=== PATIENT | female | born 1945 | race Hispanic/Latino ===

== ENCOUNTER 2018-01-28 16:11 | Emergency (ER) | payer MEDICARE ==
[~2018-01-28] VITALS: Ht 157.5 cm; Wt 77.1 kg
[~2018-01-28 16:11] MED LIST: GLIPIZIDE-METF1 EAC2 PO; TYLENOL WITH C1 EACH PO
--- OUTSIDE RECORDS SUMMARY | 2018-01-28 16:13 | XMS REPORT | Clinical Summary ---
Author Author ALVARO [facility] Address Unknown Phone Unavailable Care Team Providers Care Green Prize Packer Name Role Phone PCP Unavailable Allergies No Known Allergies Current Medications Prescription Sig. Disp. Refills Start End Date Status Date metFORMIN (GLUCOPHAGE) Take 500 mg by mouth 2 Active 500 MG tabletIndications: (two) times daily with type 2 diabetes mellitus breakfast and dinner. amLODIPine (NORVASC) 5 MG Take 1 tablet (5 mg 30 tablet 2 07/31/20 07/31/20 Active tablet total) by mouth daily. 17 18 aspirin 81 MG EC tablet Take 1 tablet (81 mg 30 tablet 2 07/31/20 Active total) by mouth daily. 17 18 atorvastatin (LIPITOR) 40 Take 1 tablet (40 mg 30 tablet 2 07/30/20 07/30/20 Active MG tablet total) by mouth nightly. 17 18 famotidine (PEPCID) 20 MG Take 1 tablet (20 mg 60 tablet 0 07/30/20 Active tablet total) by mouth every 12 17 (twelve) hours. lisinopril Take 1 tablet (20 mg 30 tablet 2 07/31/20 07/31/20 Active (PRINIVIL,ZESTRIL) 20 MG total) by mouth daily. 17 18 tablet metoprolol (LOPRESSOR) 50 Take 1 tablet (50 mg 60 tablet 2 07/30/20 07/30/20 Active MG tablet total) by mouth 2 (two) 17 18 times daily. Active Problems Problem Noted Date NSTEMI (non-ST elevated myocardial infarction) ([facility]) 07/28/2017 Hyperlipidemia 07/28/2017 DM type 2 (diabetes mellitus, type 2) ([facility]) 07/28/2017 Leukocytosis (leucocytosis) 07/28/2017 Post-op pain 07/28/2017 Encounters Date Type Specialty Care Team Description 07/29/2017 Procedure Pass 07/29/2017 Surgery [place] Pena, Richard CATH & PCI 07/28/2017 [facility] Cardiology Harriet, Lamont Kwon MD Hyperlipidemia, - Encounter Christal May, unspecified 07/30/2017 hyperlipidemia type;Type 2 diabetes mellitus with complication, unspecified senior care insulin use status ([facility]);NSTEMI (non-ST elevated myocardial infarction) ([facility]) 07/28/2017 Orders Only General Internal Medicine after 01/27/2017 Family History Medical History Relation Name Comments Diabetes Brother No Known Problem Father No Known Problem Mother Relation Name Status Comments Brother Father Mother Social History Tobacco Use Types Packs/Day Years Used Date Never Smoker Smokeless Tobacco: Never Used Alcohol Use Drinks/Week oz/Week Comments No Sex Assigned at Date Recorded Not on file Last Filed Vital Signs Vital Sign Reading Time Taken Blood Pressure 192/75 07/30/2017 11:25 AM [facility] Pulse 64 07/30/2017 11:22 AM [facility] [employer] Temperature 36.9 C (98.4 F) 07/30/2017 11:22 AM [facility] [employer] Respiratory Rate 18 07/30/2017 11:22 AM [facility] Oxygen Saturation 73% 07/30/2017 11:22 AM [facility] [employer] Inhaled Oxygen - - Concentration Weight 78.3 kg (172 lb 11.2 oz) 07/30/2017 7:32 AM [facility] Height 157.5 cm (5' 2") 07/28/2017 5:30 AM [facility] Body Mass Index 31.59 07/30/2017 7:32 AM [facility] Plan of Treatment Not on file Procedures Procedure Name Priority Date/Time Associated Diagnosis Comments L CATH & PCI 07/29/2017 chest pain 11:12 AM SINGLE [employer]NER C[employer]TER after 01/27/2017 Results * VASCULAR DIAGRAM -SCAN (08/01/2017 12:12 PM) Only the most recent of 2 results within the time period is included. * CARDIAC CATH REPORT - SCAN (07/31/2017 11:31 PM) * RHYTHM STRIP - SCAN (07/31/2017 1:20 PM) * POC-Glucose meter (07/30/2017 12:40 PM) Only the most recent of 9 results within the time period is included. Component Value Ref Range POC-Glucose Meter 187 (H)Comment: TESTED AT [facility] [address] [place] [address] 70 - 110 mg /dL [facility] [address] Specimen Performing Laboratory Blood [address] [address] * CBC with platelet count + automated diff (07/30/2017 4:10 AM) Only the most recent of 3 results within the time period is included. Component Value Ref Range WBC 10.5 3.5 - 10.5 K/ L RBC 3.37 (L) 3.93 - 5.22 M/ L Hemoglobin 9.3 (L) 11.2 - 15.7 GM/DL Hematocrit 29.8 (L) 34.1 - 44.9 % MCV 88.4 79.4 - 94.8 fL MCH 27.6 25.6 - 32.2 pg MCHC 31.2 (L) 32.2 - 35.5 GM/DL RDW 14.3 11.7 - 14.4 % Platelets 429 150 - 450 K/CU MM MPV 10.4 9.4 - 12.3 fL nRBC 0 0 - 0 /100 WBC % Neutros 73 % % Lymphs 17 % % Monos 8 % % Eos 1 % % Baso 1 % # Neutros 7.64 (H) 1.56 - 6.13 K/ L # Lymphs 1.76 1.18 - 3.74 K/ L # Monos 0.81 (H) 0.24 - 0.36 K/ L # Eos 0.15 0.04 - 0.36 K/ L # Baso 0.06 0.01 - 0.08 K/ L Immature 1 0 - 1 % Granulocytes-Relative Specimen Performing Laboratory Blood - Arm, Left [address] [address] * CBC with platelet count + automated diff (07/30/2017 4:10 AM) Only the most recent of 3 results within the time period is included. Specimen Performing Laboratory Blood Narrative The following orders were created for panel order CBC with platelet count + automated diff. Procedure Abnormality Status --------- - ------ CBC with platelet count ...[[id number]]AbnormalFinal result Please view results for these tests on the individual orders. * Magnesium (07/30/2017 4:10 AM) Only the most recent of 3 results within the time period is included. Component Value Ref Range Magnesium 1.8 1.6 - 2.6 mg/dL Specimen Performing Laboratory Blood - Arm, Left [address] [address] * Basic metabolic panel (07/30/2017 4:10 AM) Only the most recent of 3 results within the time period is included. Component Value Ref Range Sodium 143 136 - 145 meq/L Potassium 3.2 (L) 3.5 - 5.1 meq/L Chloride 110 (H) 98 - 107 meq/L CO2 23 22 - 29 meq/L BUN 12 7 - 21 mg/dL Creatinine 0.71 0.57 - 1.25 mg/dL Glucose 143 (H) 70 - 105 mg/dL Calcium 8.8 8.4 - 10.2 mg/dL EGFR 81Comment: ESTIMATED GFR IS NOT ACCURATE mL/min/1.73 sq m CREATININE CLEARANCE IN PREDICTING GLOMERULAR FILTRATION RATE. ESTIMATED GFR IS NOT APPLICABLE FOR DIALYSIS PATIENTS. Specimen Performing Laboratory Blood - Arm, Left [address] [address] * TRANSFUSION SERVICE REPORT - SCAN (07/29/2017 5:42 PM) * PERIPHERAL VASCULAR REPORT - SCAN (07/29/2017 7:22 AM) * Carotid doppler bilateral (07/28/2017 6:50 PM) Component Value Ref Range Ejection Fraction Specimen Performing Laboratory [facility] Imp[facility] Right Impression 1. There is <50% diameter reduction (approximately 20% by 2-D measurement) in the internal carotid artery with a peak velocity of 96/27 cm/sec and heterogeneous plaque. 2. The external carotid artery is within normal limits. 3. The common carotid artery is within normal limits. 4. The vertebral artery flow is antegrade and normal. 5. The subclavian artery is within normal limits where visualized. Left Impression 1. There is <50% diameter reduction (approximately 24% by 2-D measurement) in the internal carotid artery with a peak velocity of 101/33 cm/sec and heterogeneous plaque. 2. There is >50% stenosis in the external carotid artery with a velocity of 273/51 . 3. There is non-occluding plaque in the common carotid artery. 4. The vertebral artery flow is antegrade and normal. 5. The subclavian artery is within normal limits where visualized. Conclusions Summary Carotid duplex scanning and color flow imaging were performed bilaterally. The examination was technically difficult due to deep breathing, however, the arteries were adequately visualized. The bilateral internal carotid arteries had <50% hemodynamically insignificant stenosis (approximately 20% by 2-D measurement on the right, approximately 24% by 2-D measurement on the left) with heterogeneous plaque. There was >50% hemodynamically significant stenosis in the left external carotid artery. The vertebral artery flow was antegrade and normal bilaterally. The subclavian arteries were patent with normal flow bilaterally where visualized. Signature Velocities are measured in cm/s ; Diameters are measured in cm Carotid Right Measurements + +----+----+-----+ + + + !Location !PSV !EDV !Angle!%Stenosis 2D!%Stenosis Doppler! Tortuosity ! + +----+----+-----+ + + + !Prox CCA !98.5!15.8!60 !! ! ! + +----+----+-----+ + + + !Dist CCA !94.4!14.7!60 !! ! ! + +----+----+-----+ + + + !Prox ICA !95.9!26.7!60 !20% !<50% ! ! + +----+----+-----+ + + + !Dist ICA !128 !30.6!60 !! ! ! + +----+----+-----+ + + + !Prox ECA !150 !18.1!60 !! ! ! + +----+----+-----+ + + + !Vertebral!95.1!29.9!60 !! ! ! + +----+----+-----+ + + + !Prox Subclavian!159 !!60 !! ! ! + +----+----+-----+ + + + - There is antegrade vertebral flow noted on the right side. - Additional Measurements:ICAPSV/CCAPSV 1.36.ICAEDV/CCAEDV 1.94. Carotid Left Measurements + +----+----+-----+ + + + !Location !PSV !EDV !Angle!%Stenosis 2D!%Stenosis Doppler! Tortuosity ! + +----+----+-----+ + + + !Prox CCA !89.1!15.8!60 !! ! ! + +----+----+-----+ + + + !Dist CCA !80.3!16.4!60 !! ! ! + +----+----+-----+ + + + !Prox ICA !101 !33!60 !24% !<50% ! ! + +----+----+-----+ + + + !Dist ICA !110 !29.9!60 !! ! ! + +----+----+-----+ + + + !Prox ECA !273 !51.9!60 !!>50% ! ! + +----+----+-----+ + + + !Vertebral!51.1!17.3!60 !! ! ! + +----+----+-----+ + + + !Prox Subclavian!155 !!60 !! ! ! + +----+----+-----+ + + + - There is antegrade vertebral flow noted on the left side. - Additional Measurements:ICAPSV/CCAPSV 1.37.ICAEDV/CCAEDV 2.09. Narrative [facility] - Carotid Duplex Study Demographics Patient Name LACIE MIJARESDate of Study 07/28/2017 ISHAN [id number] Age 72 Visit Number [id number] Gender Female Accession Number [id number] [facility] 1945 [id number] Physician SonographChandra YuanJ. Gabrielle Reyna MD, [facility] Procedure Type of Study: Cerebral: Carotid, CAROTID DOPPLER, BILATERAL. Indications for Study:Bruit and Pre-op. Patient Status:TODAY. Study Location:Portable. Technical Quality:Technically Difficult. Risk Factors History of Disease + + + + !Diagnosis !Date!Comments ! + + + + !History/Risk!07/28/2017!NSTEMI, HLD, DM, HTN, Recent surgery: S/P Lap ! !Factors:!!cholycystectomy 07/26/17 ! + + + + Procedure Note Interface, External Ris In - 07/29/2017 4:43 AM [facility]INGLE [facility]NER [facility] - Carotid Duplex Study Demographics Patient Name LACIE MIJARES Date of Study 07/28/2017 ISHAN Age 72 Visit Number [id number] Gender Female Accession Number [id number] Date of 1945 Referring Karsten Blackmon Room Number 7519 Physician Mine Exploration Engineer Arturo Rowland Interpreting SHARMIN Gatica Physician , [facility] Procedure Type of Study: Cerebral: Carotid, CAROTID DOPPLER, BILATERAL. Indications for Study:Bruit and Pre-op. Patient Status:TODAY. Study Location:Portable. Technical Quality:Technically Difficult. Risk Factors History of Disease + + + + !Diagnosis !Date !Comments ! + + + + !History/Risk !07/28/2017!NSTEMI, HLD, DM, HTN, Recent surgery: S/P Lap ! !Factors: ! !cholycystectomy 07/26/17 ! + + + + Impressions Right Impression 1. There is <50% diameter reduction (approximately 20% by 2-D measurement) in the internal carotid artery with a peak velocity of 96/27 cm/sec and heterogeneous plaque. 2. The external carotid artery is within normal limits. 3. The common carotid artery is within normal limits. 4. The vertebral artery flow is antegrade and normal. 5. The subclavian artery is within normal limits where visualized. Left Impression 1. There is <50% diameter reduction (approximately 24% by 2-D measurement) in the internal carotid artery with a peak velocity of 101/33 cm/sec and heterogeneous plaque. 2. There is >50% stenosis in the external carotid artery with a velocity of 273/51 . 3. There is non-occluding plaque in the common carotid artery. 4. The vertebral artery flow is antegrade and normal. 5. The subclavian artery is within normal limits where visualized. Conclusions Summary Carotid duplex scanning and color flow imaging were performed bilaterally. The examination was technically difficult due to deep breathing, however, the arteries were adequately visualized. The bilateral internal carotid arteries had <50% hemodynamically insignificant stenosis (approximately 20% by 2-D measurement on the right, approximately 24% by 2-D measurement on the left) with heterogeneous plaque. There was >50% hemodynamically significant stenosis in the left external carotid artery. The vertebral artery flow was antegrade and normal bilaterally. The subclavian arteries were patent with normal flow bilaterally where visualized. Signature Velocities are measured in cm/s ; Diameters are measured in cm Carotid Right Measurements + +----+----+-----+ + + + !Location !PSV !EDV !Angle!%Stenosis 2D!%Stenosis Doppler!Tortuosity ! + +----+----+-----+ + + + !Prox CCA !98.5!15.8!60 ! ! ! ! + +----+----+-----+ + + + !Dist CCA !94.4!14.7!60 ! ! ! ! + +----+----+-----+ + + + !Prox ICA !95.9!26.7!60 !20% !<50% ! ! + +----+----+-----+ + + + !Dist ICA !128 !30.6!60 ! ! ! ! + +----+----+-----+ + + + !Prox ECA !150 !18.1!60 ! ! ! ! + +----+----+-----+ + + + !Vertebral !95.1!29.9!60 ! ! ! ! + +----+----+-----+ + + + !Prox Subclavian!159 ! !60 ! ! ! ! + +----+----+-----+ + + + - There is antegrade vertebral flow noted on the right side. - Additional Measurements:ICAPSV/CCAPSV 1.36.ICAEDV/CCAEDV 1.94. Carotid Left Measurements + +----+----+-----+ + + + !Location !PSV !EDV !Angle!%Stenosis 2D!%Stenosis Doppler!Tortuosity ! + +----+----+-----+ + + + !Prox CCA !89.1!15.8!60 ! ! ! ! + +----+----+-----+ + + + !Dist CCA !80.3!16.4!60 ! ! ! ! + +----+----+-----+ + + + !Prox ICA !101 !33 !60 !24% !<50% ! ! + +----+----+-----+ + + + !Dist ICA !110 !29.9!60 ! ! ! ! + +----+----+-----+ + + + !Prox ECA !273 !51.9!60 ! !>50% ! ! + +----+----+-----+ + + + !Vertebral !51.1!17.3!60 ! ! ! ! + +----+----+-----+ + + + !Prox Subclavian!155 ! !60 ! ! ! ! + +----+----+-----+ + + + - There is antegrade vertebral flow noted on the left side. - Additional Measurements:ICAPSV/CCAPSV 1.37.ICAEDV/CCAEDV 2.09. * Prepare Leuko-Red RBC (07/28/2017 3:15 PM) Component Value Ref Range CROSSMATCH COMPATIBLE Unit ABO O Pos UNIT NUMBER [id number] Status READY Blood Bank Product RED BLOOD CELLS PRODUCT CODE [id number] CROSSMATCH COMPATIBLE Unit ABO O Pos UNIT NUMBER [id number] Status READY Blood Bank Product RED BLOOD CELLS PRODUCT CODE [id number] Specimen Performing Laboratory Other [place] * Type and screen, automated (07/28/2017 2:18 PM) Component Value Ref Range ABO/RH AUTOMATED (BEAKER) O POSITIVE Ab Scrn NEGATIVE Specimen Performing Laboratory Blood - Line, [place] [address] * Hemoglobin and hematocrit (07/28/2017 2:18 PM) Component Value Ref Range Hemoglobin 9.2 (L) 11.2 - 15.7 GM/DL Hematocrit 29.3 (L) 34.1 - 44.9 % Specimen Performing Laboratory Blood - Line, [address] [address] Narrative Post transfusion * Troponin I (07/28/2017 2:18 PM) Only the most recent of 3 results within the time period is included. Component Value Ref Range Troponin I 3.11 (HH) 0.00 - 0.03 ng/mL Specimen Performing Laboratory Blood - Line, [address] [address] Narrative Troponin I (TnI) levels must be interpreted in the context of the presenting symptoms and the clinical findings. Elevated TnI levels indicate myocardial damage, but are not specific for ischemic heart disease. Elevated TnI levels are seen in patients with other cardiac conditions (including myocarditis and congestive heart failure), and slight TnI elevations occur in patients with other conditions, including sepsis, renal failure, acidosis, acute neurological disease, and persistent tachyarrhythmia. * Potassium (07/28/2017 2:18 PM) Component Value Ref Range Potassium 3.6 3.5 - 5.1 meq/L Specimen Performing Laboratory Blood - Line, Venous [address] [address] Narrative Add on * ECHOCARDIOGRAM REPORT - SCAN (07/28/2017 12:51 PM) * Blood culture (07/28/2017 10:15 AM) Only the most recent of 2 results within the time period is included. Component Value Ref Range Result No growth in 5 days Specimen Performing Laboratory Blood - Arm, Left [address] [address] * XR chest 1 view portable / bedside (07/28/2017 10:09 AM) Specimen Performing Laboratory GE RIS Narrative FINAL REPORT Abdomen one view Comparison: None. Reason for exam:chest pain, SOB Findings: Bowel gas pattern is nonobstructive, nonspecific. No free air is identified. There is contrast within the bladder. Cholecystectomy clips are present. Osseous structures demonstrate degenerative changes. Chest one view. Clinical history: chest pain, SOB Comparison: No priors Discussion: A frontal chest is provided. Cardiomediastinal contours are unremarkable. Aorta is mildly calcified. There are streaky opacities at both lung bases, favor atelectasis. Suspect a small right effusion. No pneumothorax. No acute bony abnormality. Signed: Francisco Tyler MD Report Verified Date/Time:07/28/2017 10:12:53 Reading Location: [facility] Radiology Reading Room Procedure Note Interface, External Ris In - 07/28/2017 10:15 AM SING[facility] [employer]TER FINAL REPORT Abdomen one view Comparison: None. Reason for exam: chest pain, SOB Findings: Bowel gas pattern is nonobstructive, nonspecific. No free air is identified. There is contrast within the bladder. Cholecystectomy clips are present. Osseous structures demonstrate degenerative changes. Chest one view. Clinical history: chest pain, SOB Comparison: No priors Discussion: A frontal chest is provided. Cardiomediastinal contours are unremarkable. Aorta is mildly calcified. There are streaky opacities at both lung bases, favor atelectasis. Suspect a small right effusion. No pneumothorax. No acute bony abnormality. Signed: Francisco Tyler MD Report Verified Date/Time: 07/28/2017 10:12:53 Reading Location: [facility] Radiology Reading Room * XR abdomen / KUB 1 view (07/28/2017 10:09 AM) Specimen Performing Laboratory GE RIS Narrative FINAL REPORT Abdomen one view Comparison: None. Reason for exam:chest pain, SOB Findings: Bowel gas pattern is nonobstructive, nonspecific. No free air is identified. There is contrast within the bladder. Cholecystectomy clips are present. Osseous structures demonstrate degenerative changes. Chest one view. Clinical history: chest pain, SOB Comparison: No priors Discussion: A frontal chest is provided. Cardiomediastinal contours are unremarkable. Aorta is mildly calcified. There are streaky opacities at both lung bases, favor atelectasis. Suspect a small right effusion. No pneumothorax. No acute bony abnormality. Signed: Francisco Tyler MD Report Verified Date/Time:07/28/2017 10:12:53 Reading Location: [facility] Radiology Reading Room Procedure Note Interface, External Ris In - 07/28/2017 10:15 AM S[employer] C[employer]TER FINAL REPORT Abdomen one view Comparison: None. Reason for exam: chest pain, SOB Findings: Bowel gas pattern is nonobstructive, nonspecific. No free air is identified. There is contrast within the bladder. Cholecystectomy clips are present. Osseous structures demonstrate degenerative changes. Chest one view. Clinical history: chest pain, SOB Comparison: No priors Discussion: A frontal chest is provided. Cardiomediastinal contours are unremarkable. Aorta is mildly calcified. There are streaky opacities at both lung bases, favor atelectasis. Suspect a small right effusion. No pneumothorax. No acute bony abnormality. Signed: Francisco Tyler MD Report Verified Date/Time: 07/28/2017 10:12:53 Reading Location: [facility] Radiology Reading Room * Urinalysis w/Microscopic (07/28/2017 9:43 AM) Component Value Ref Range Color, UA Yellow Clarity, UA Clear Specific Thayer, UA 1.028 1.001 - 1.035 pH, UA 5.5 5.0 - 8.0 Protein, UA 50 mg/dL (A) Negative Glucose, UA Negative Negative Ketones, UA 20 mg/dL (A) Negative Bilirubin, UA Negative Negative Blood, UA Small (A) Negative Nitrite, UA Negative Negative Leukocytes, UA Trace (A) Negative Urobilinogen, UA 0.2 0.2 - 1.0 mg/dL RBC, UA 2 /HPF WBC, UA 8 /HPF Mucus Rare Squam Epithel, UA 1 /HPF Specimen Source Urine, Voided Specimen Performing Laboratory Urine - Urine, [place] [address] * Hemoglobin A1c (07/28/2017 9:34 AM) Component Value Ref Range Hemoglobin A1C 5.8 4.3 - 6.1 % Specimen Performing Laboratory Blood - Line, [place] [address] * ECG 12 lead (07/28/2017 8:46 AM) Specimen Performing Laboratory GE MUSE Narrative Ventricular Rate 73 BPM Atrial Rate 73 BPM P-R Interval 130 ms QRS Duration 86 ms Q-T Interval 392 ms QTC Calculation(Bazett) 431 ms P [place] 54 degrees R [place] 43 degrees T [place] -58 degrees Normal sinus rhythm Nonspecific ST and T wave abnormality Abnormal ECG No previous ECGs available Confirmed by MD ENCISO YOCHAI ([id number]) on 07/28/2017 7:59:29 PM Procedure Note Interface, External Ris In - 07/28/2017 7:59 PM SINGLE [employer]NER C[employer]TER Ventricular Rate 73 BPM Atrial Rate 73 BPM P-R Interval 130 ms QRS Duration 86 ms Q-T Interval 392 ms QTC Calculation(Bazett) 431 ms P [place] 54 degrees R [place] 43 degrees T [place] -58 degrees Normal sinus rhythm Nonspecific ST and T wave abnormality Abnormal ECG No previous ECGs available Confirmed by MD ENCISO YOCHAI ([id number]) on 07/28/2017 7:59:29 PM * 2D Echo W/Doppler(CW/PW/Color) (07/28/2017 7:16 AM) Component Value Ref Range Ejection Fraction Specimen Performing Laboratory SLE ECHO HEARTLAB MKCKESSON CPACS Narrative Transthoracic Echocardiography Report (TTE) Demographics Patient NameCASILLAS, LACIE Date of Study11/ ISHAN Female Visit [id number] Unknown Room [id number] Number Date of 4Referring Physician SHARATH Jeffries Age 72 year(s)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 Clinical History NSTEMI Hypertension Contrast Medium: Definity. Amount - 5 ml Height: 62 inches Weight: 78.93 kg (174 lbs) BSA: 1.8 m^2 BMI: 31.82 kg/m^2 HR: 82 bpm BP: 164/75 mmHg Summary LV endocardium is well visualized with IV ultrasound enhancing agent. The left ventricle is chamber size (by vol index) is normal (female - LVED vol - 29-61ml/m2). No evidence of LV hypertrophy. The following segment(s) appear mildly hypokinetic: base and mid inferior, base and mid inferior septum.The other segments contract normally. LVEF by Houston's method of disk assessment is normal (>60%) . Degree of diastolic dysfunction (LAP assessment) is inconclusive due to mitral annular calcification . The right ventricular chamber size and systolic function are within normal limits. Trace mitral regurgitation. Estimated peak systolic PA pressure is 40-45 mmHg + RA pressure. The estimated RA pressure by IVC dynamics 5-10mmHg . No pericardial effusion is visualized. Previous Study No prior exam available for comparison. Signature Findings Technical Quality: Technically fair exam. Rhythm/BPRapid rhythm during the exam. Left Ventricle LV endocardium is well visualized with IV ultrasound enhancing agent. The left ventricle is chamber size (by vol index) is normal (female - LVED vol - 29-61ml/m2). No evidence of LV hypertrophy. The following segment(s) appear mildly hypokinetic: base and mid inferior, base and mid inferior septum. The other segments contract normally. LVEF by Houston's method of disk assessment is normal (>60%) . Degree of diastolic dysfunction (LAP assessment) is inconclusive due to mitral annular calcification . Left AtriumLA size is moderately enlarged (42-48 ml/m2 ) . Right VentricleThe right ventricular chamber size and systolic function are within normal limits. Right Atrium RA size is normal. Atrial SeptumNormal interatrial septum by available views. Aortic Valve Mild AoV cusp thickening. Mild AoV cusp calcification. AoV calcification primarily involves the right- and left- coronary cusp(s). There is evidence of aortic valve sclerosis without significant stenosis. Mitral Valve Mild MV leaflet thickening. Mild mitral annular calcification. Mild MV leaflet calcification. Trace mitral regurgitation. Mild mitral stenosis. Tricuspid ValveTV structure is normal. Mild tricuspid regurgitation. Estimated peak systolic PA pressure is 40-45 mmHg + RA pressure. Pulmonic Valve Normal PV structure. A trace of pulmonary regurgitation. Mean pulmonary pressure 18 mmHg. AortaAortic root size (SInus of Valsalva diameter) is normal . There is diffuse aortic atheroma in following locations: aortic arch PericardiumNo pericardial effusion is visualized. IVC/SVC/PA/PV/PleuralThe estimated RA pressure by IVC dynamics 5-10mmHg . Chambers/Structures Left Atrium LA Dimension: 3.91 cmLA Area: 14.62 cm^2 LA Volume: 48.34 ml LA Vol. Index: 27 ml/m^2 Left Ventricle LVIDd: 4.22 cm LV Septum Diastolic: 1.04 cm LV PW Diastolic: 1.06 cm LVEDV Houston's:87.02 ml LVESV [place]'s:25.22 ml LV IVRT: 82.2 msec LVEF Houston's: 71 % LVEDVI: 48 ml/ m^2 LVESVI: 14 ml/m^2 LVOT Diameter: 2.04 cm Right Atrium RA Vol. (Sngl Plane): 12.74 ml Right Ventricle TAPSE: 1.95 cm Doppler/Quantitative Measurements Mitral Valve MV Peak E-Wave: 1.05 m/sMV Peak A-Wave: 1.3 m/s P1/2t: 76.8 msecE/A Ratio: 0.8 Mean Velocity: 0.92 m/s Peak Gradient: 4.38 mmHg Mean Gradient: 3.75 mmHgDeceleration Time: 135.8 msec MV Area (PHT): 2.86 cm^2Area (continuity): 2.23 cm^ 2 MV VTI: 34.56 cm MV Compa. Peak: Tissue Doppler E' Lateral Velocity: 0.1 m/sE/E': 10.99 Aortic Valve Peak Velocity: 2.3 m/s Mean Velocity: 1.52 m/s Peak Gradient: 21.1 mmHg Mean Gradient: 10.59 mmHg AV Area (continuity): 1.67 cm^2 AV VTI: 46.07 cm AV DVI: 0.51 LVOT Peak Velocity: 1.04 m/s Peak Gradient: 4.34 mmHg Mean Velocity: 0.76 m/s Mean Gradient: 2.58 mmHg LVOT Diameter: 2.04 cmLVOT VTI: 23.56 cm LVOT Area: 3.27 cm^2LVOT SV:76.97 ml LVOT CO: 6.31 l/min LVOT CI: 3.51 l/min/m^2 Tricuspid Valve TR Velocity: 3.18 m/s TR Gradient: 40.38 mmHg Pulmonic Valve PI Peak Velocity: 2.54 m/s Procedure Note Interface, External Ris In - 07/28/2017 12:02 PM [employer] Transthoracic Echocardiography Report (TTE) Demographics Patient Name LACIE MIJARES Date of Study 07/28/2017 ISHAN Gender Female Visit Number [id number] Race Unknown Room Number 7519 Number Date of 1945 Referring Physician SHARATH Jeffries Age 72 year(s) 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 Clinical History NSTEMI Hypertension Contrast Medium: Definity. Amount - 5 ml Height: 62 inches Weight: 78.93 kg (174 lbs) BSA: 1.8 m^2 BMI: 31.82 kg/m^2 HR: 82 bpm BP: 164/75 mmHg Summary LV endocardium is well visualized with IV ultrasound enhancing agent. The left ventricle is chamber size (by vol index) is normal (female - LVED vol - 29-61ml/m2). No evidence of LV hypertrophy. The following segment(s) appear mildly hypokinetic: base and mid inferior, base and mid inferior septum.The other segments contract normally. LVEF by Houston's method of disk assessment is normal (>60%) . Degree of diastolic dysfunction (LAP assessment) is inconclusive due to mitral annular calcification . The right ventricular chamber size and systolic function are within normal limits. Trace mitral regurgitation. Estimated peak systolic PA pressure is 40-45 mmHg + RA pressure. The estimated RA pressure by IVC dynamics 5-10mmHg . No pericardial effusion is visualized. Previous Study No prior exam available for comparison. Signature Findings Technical Quality: Technically fair exam. Rhythm/BP Rapid rhythm during the exam. Left Ventricle LV endocardium is well visualized with IV ultrasound enhancing agent. The left ventricle is chamber size (by vol index) is normal (female - LVED vol - 29-61ml/m2). No evidence of LV hypertrophy. The following segment(s) appear mildly hypokinetic: base and mid inferior, base and mid inferior septum. The other segments contract normally. LVEF by Houston's method of disk assessment is normal (>60%) . Degree of diastolic dysfunction (LAP assessment) is inconclusive due to mitral annular calcification . Left Atrium LA size is moderately enlarged (42-48 ml/m2) . Right Ventricle The right ventricular chamber size and systolic function are within normal limits. Right Atrium RA size is normal. Atrial Septum Normal interatrial septum by available views. Aortic Valve Mild AoV cusp thickening. Mild AoV cusp calcification. AoV calcification primarily involves the right- and left- coronary cusp(s). There is evidence of aortic valve sclerosis without significant stenosis. Mitral Valve Mild MV leaflet thickening. Mild mitral annular calcification. Mild MV leaflet calcification. Trace mitral regurgitation. Mild mitral stenosis. Tricuspid Valve TV structure is normal. Mild tricuspid regurgitation. Estimated peak systolic PA pressure is 40-45 mmHg + RA pressure. Pulmonic Valve Normal PV structure. A trace of pulmonary regurgitation. Mean pulmonary pressure 18 mmHg. Aorta Aortic root size (SInus of Valsalva diameter) is normal . There is diffuse aortic atheroma in following locations: aortic arch Pericardium No pericardial effusion is visualized. IVC/SVC/PA/PV/Pleural The estimated RA pressure by IVC dynamics 5-10mmHg . Chambers/Structures Left Atrium LA Dimension: 3.91 cm LA Area: 14.62 cm^2 LA Volume: 48.34 ml LA Vol. Index: 27 ml/m^2 Left Ventricle LVIDd: 4.22 cm LV Septum Diastolic: 1.04 cm LV PW Diastolic: 1.06 cm LVEDV [place]'s:87.02 ml LVESV [place]'s:25.22 ml LV IVRT: 82.2 msec LVEF [place]'s: 71 % LVEDVI: 48 ml/m^2 LVESVI: 14 ml/m^2 LVOT Diameter: 2.04 cm Right Atrium RA Vol. (Sngl Plane): 12.74 ml Right Ventricle TAPSE: 1.95 cm Doppler/Quantitative Measurements Mitral Valve MV Peak E-Wave: 1.05 m/s MV Peak A-Wave: 1.3 m/s P1/2t: 76.8 msec E/A Ratio: 0.8 Mean Velocity: 0.92 m/s Peak Gradient: 4.38 mmHg Mean Gradient: 3.75 mmHg Deceleration Time: 135.8 msec MV Area (PHT): 2.86 cm^2 Area (continuity): 2.23 cm^2 MV VTI: 34.56 cm MV Compa. Peak: Tissue Doppler E' Lateral Velocity: 0.1 m/s E/E': 10.99 Aortic Valve Peak Velocity: 2.3 m/s Mean Velocity: 1.52 m/s Peak Gradient: 21.1 mmHg Mean Gradient: 10.59 mmHg AV Area (continuity): 1.67 cm^2 AV VTI: 46.07 cm AV DVI: 0.51 LVOT Peak Velocity: 1.04 m/s Peak Gradient: 4.34 mmHg Mean Velocity: 0.76 m/s Mean Gradient: 2.58 mmHg LVOT Diameter: 2.04 cm LVOT VTI: 23.56 cm LVOT Area: 3.27 cm^2 LVOT SV:76.97 ml LVOT CO: 6.31 l/min LVOT CI: 3.51 l/min/m^2 Tricuspid Valve TR Velocity: 3.18 m/s TR Gradient: 40.38 mmHg Pulmonic Valve PI Peak Velocity: 2.54 m/s * Hepatic function panel (07/28/2017 6:34 AM) Component Value Ref Range Protein, Total 6.0 6.0 - 8.3 gm/dL Albumin 2.7 (L) 3.5 - 5.0 g/dL Total Bilirubin 0.3 0.2 - 1.2 mg/dL Bilirubin, Direct 0.2 0.1 - 0.5 mg/dL Alkaline Phosphatase 86 40 - 150 U/L AST 40 (H) 5 - 34 U/L ALT 41 6 - 55 U/L Specimen Performing Laboratory Blood [address] [address] * Lipid panel (07/28/2017 6:34 AM) Component Value Ref Range Triglycerides 93 mg/dL Cholesterol 130 mg/dL HDL 29 mg/dL LDL Calculated 82 mg/dL Specimen Performing Laboratory Blood [address] [address] Narrative Triglyceride Reference Range: Low Risk <150 [id number] High Risk 200-499 Very High Risk>=500 Cholesterol Reference Range: Low Risk <200 [id number] High Risk>240 HDL Cholesterol Reference Range: Low Risk >=60 High Risk <40 LDL Cholesterol Reference Range: Optimal<100 Near [id number] Very High >=190 after 01/27/2017
--- OUTSIDE RECORDS SUMMARY | 2018-01-28 16:13 | XMS REPORT ---
Author Author [facility] Address Unknown Phone Unavailable Care Team Providers Care Energy Conservation Representative Name Role Phone BRENDAN ELIZABETH Unavailable Unavailable DAISY LINTON Unavailable Unavailable VITALIY, KRISTIE Unavailable Unavailable Problems This patient has no known problems. Allergies, Adverse Reactions, Alerts This patient has no known allergies or adverse reactions. Medications This patient has no known medications. Results Test Description Test Time Test Comments Text Results Atomic Results Result Comments BLOOD CULTURE 2017-08-02 17:00:00 CULTURE (BEAKER) (test kuxb=0447) No growth in 5 days BLOOD [id number] 17:00:00* Test Item Value Reference Range Comments CULTURE (BEAKER) (test oxaf=9209) No growth in 5 days POCT-GLUCOSE [id number] 12:46:00* Test Item Value Reference Range Comments POC-GLUCOSE METER (BEAKER) (test hmhb=9609) 187 mg/dL 70-110 TESTED AT [address] [address] POCT-GLUCOSE [id number] 07:39:00* Test Item Value Reference Range Comments POC-GLUCOSE METER (BEAKER) (test rugd=2423) 158 mg/dL 70-110 TESTED AT [address] [address] [id number] 05:40:00* Test Item Value Reference Range Comments MAGNESIUM (BEAKER) (test tbve=237) 1.8 mg/dL 1.6-2.6 BASIC METABOLIC [id number] 05:40:00* Test Item Value Reference Range Comments SODIUM (BEAKER) (test gshj=598) 143 meq/L 136-145 POTASSIUM (BEAKER) (test ktty=616) 3.2 meq/L 3.5-5.1 CHLORIDE (BEAKER) (test lnet=165) 110 meq/L 98-107 CO2 (BEAKER) (test kgui=003) 23 meq/L 22-29 BLOOD UREA NITROGEN (BEAKER) (test rgbf=165) 12 mg/dL 7-21 CREATININE (BEAKER) (test spyb=012) 0.71 mg/dL 0.57-1.25 GLUCOSE RANDOM (BEAKER) (test atfb=288) 143 mg/dL 70-105 CALCIUM (BEAKER) (test aeep=058) 8.8 mg/dL 8.4-10.2 EGFR (BEAKER) (test htjs=0878) 81 mL/min/1.73 sq m ESTIMATED GFR IS NOT ACCURATE CREATININE CLEARANCE IN PREDICTING GLOMERULAR FILTRATION RATE. ESTIMATED GFR IS NOT APPLICABLE FOR DIALYSIS PATIENTS. CBC W/PLT COUNT & AUTO [id number] 05:11:00* Test Item Value Reference Range Comments WHITE BLOOD CELL COUNT (BEAKER) (test gpjq=775) 10.5 K/ L 3.5-10.5 RED BLOOD CELL COUNT (BEAKER) (test vplb=206) 3.37 M/ L 3.93-5.22 HEMOGLOBIN (BEAKER) (test juqk=049) 9.3 GM/DL 11.2-15.7 HEMATOCRIT (BEAKER) (test fczf=338) 29.8 % 34.1-44.9 MEAN CORPUSCULAR VOLUME (BEAKER) (test itft=439) 88.4 fL 79.4-94.8 MEAN CORPUSCULAR HEMOGLOBIN (BEAKER) (test vgjv=621) 27.6 pg 25.6-32.2 MEAN CORPUSCULAR HEMOGLOBIN CONC (BEAKER) (test nlyy=756) 31.2 GM/DL 32.2- 35.5 RED CELL DISTRIBUTION WIDTH (BEAKER) (test fjxv=837) 14.3 % 11.7-14.4 PLATELET COUNT (BEAKER) (test yuey=167) 429 K/CU MM 150-450 MEAN PLATELET VOLUME (BEAKER) (test kpna=261) 10.4 fL 9.4-12.3 NUCLEATED RED BLOOD CELLS (BEAKER) (test ggxz=506) 0 /100 WBC 0-0 NEUTROPHILS RELATIVE PERCENT (BEAKER) (test blgo=664) 73 % LYMPHOCYTES RELATIVE PERCENT (BEAKER) (test tnnr=782) 17 % MONOCYTES RELATIVE PERCENT (BEAKER) (test fepm=481) 8 % EOSINOPHILS RELATIVE PERCENT (BEAKER) (test xxra=168) 1 % BASOPHILS RELATIVE PERCENT (BEAKER) (test hjqj=070) 1 % NEUTROPHILS ABSOLUTE COUNT (BEAKER) (test gebj=555) 7.64 K/ L 1.56-6.13 LYMPHOCYTES ABSOLUTE COUNT (BEAKER) (test swos=545) 1.76 K/ L 1.18-3.74 MONOCYTES ABSOLUTE COUNT (BEAKER) (test sxfs=946) 0.81 K/ L 0.24-0.36 EOSINOPHILS ABSOLUTE COUNT (BEAKER) (test axob=499) 0.15 K/ L 0.04-0.36 BASOPHILS ABSOLUTE COUNT (BEAKER) (test nzkz=297) 0.06 K/ L 0.01-0.08 IMMATURE GRANULOCYTES-RELATIVE PERCENT (BEAKER) (test dogm=2479) 1 % 0-1 POCT-GLUCOSE [id number] 21:06:00* Test Item Value Reference Range Comments POC-GLUCOSE METER (BEAKER) (test iouo=1773) 213 mg/dL 70-110 TESTED AT [address] [address] POCT-GLUCOSE [id number] 20:19:00* Test Item Value Reference Range Comments POC-GLUCOSE METER (BEAKER) (test swlm=8957) 202 mg/dL 70-110 TESTED AT [address] [address] POCT-GLUCOSE [id number] 17:31:00* Test Item Value Reference Range Comments POC-GLUCOSE METER (BEAKER) (test xdtj=7574) 209 mg/dL 70-110 TESTED AT [address] [address] POCT-GLUCOSE [id number] 13:28:00* Test Item Value Reference Range Comments POC-GLUCOSE METER (BEAKER) (test tgsj=1040) 151 mg/dL 70-110 TESTED AT [address] [address] POCT-GLUCOSE [id number] 08:21:00* Test Item Value Reference Range Comments POC-GLUCOSE METER (BEAKER) (test krso=5866) 139 mg/dL 70-110 TESTED AT [address] [address] CBC W/PLT COUNT & AUTO [id number] 03:35:00* Test Item Value Reference Range Comments WHITE BLOOD CELL COUNT (BEAKER) (test hrzq=858) 12.1 K/ L 3.5-10.5 RED BLOOD CELL COUNT (BEAKER) (test stqr=217) 3.31 M/ L 3.93-5.22 HEMOGLOBIN (BEAKER) (test wjwk=322) 9.3 GM/DL 11.2-15.7 HEMATOCRIT (BEAKER) (test varc=233) 29.5 % 34.1-44.9 MEAN CORPUSCULAR VOLUME (BEAKER) (test bmls=079) 89.1 fL 79.4-94.8 MEAN CORPUSCULAR HEMOGLOBIN (BEAKER) (test yzva=015) 28.1 pg 25.6-32.2 MEAN CORPUSCULAR HEMOGLOBIN CONC (BEAKER) (test jfqw=403) 31.5 GM/DL 32.2- 35.5 RED CELL DISTRIBUTION WIDTH (BEAKER) (test dxwt=316) 14.1 % 11.7-14.4 PLATELET COUNT (BEAKER) (test mlew=989) 358 K/CU MM 150-450 MEAN PLATELET VOLUME (BEAKER) (test dcyk=046) 11.3 fL 9.4-12.3 NUCLEATED RED BLOOD CELLS (BEAKER) (test hxnw=389) 0 /100 WBC 0-0 NEUTROPHILS RELATIVE PERCENT (BEAKER) (test awiq=469) 84 % LYMPHOCYTES RELATIVE PERCENT (BEAKER) (test klnt=443) 10 % MONOCYTES RELATIVE PERCENT (BEAKER) (test sxdl=030) 4 % EOSINOPHILS RELATIVE PERCENT (BEAKER) (test fflt=818) 1 % BASOPHILS RELATIVE PERCENT (BEAKER) (test dked=539) 0 % NEUTROPHILS ABSOLUTE COUNT (BEAKER) (test kbqn=553) 10.17 K/ L 1.56-6.13 LYMPHOCYTES ABSOLUTE COUNT (BEAKER) (test artb=199) 1.25 K/ L 1.18-3.74 MONOCYTES ABSOLUTE COUNT (BEAKER) (test nxqo=794) 0.46 K/ L 0.24-0.36 EOSINOPHILS ABSOLUTE COUNT (BEAKER) (test zcrp=590) 0.13 K/ L 0.04-0.36 BASOPHILS ABSOLUTE COUNT (BEAKER) (test twqr=902) 0.05 K/ L 0.01-0.08 IMMATURE GRANULOCYTES-RELATIVE PERCENT (BEAKER) (test jalj=1987) 1 % 0-1 [id number] 03:21:00* Test Item Value Reference Range Comments MAGNESIUM (BEAKER) (test milm=468) 1.8 mg/dL 1.6-2.6 BASIC METABOLIC [id number] 03:21:00* Test Item Value Reference Range Comments SODIUM (BEAKER) (test ffak=824) 141 meq/L 136-145 POTASSIUM (BEAKER) (test kcwg=039) 3.5 meq/L 3.5-5.1 CHLORIDE (BEAKER) (test lpkd=232) 113 meq/L 98-107 CO2 (BEAKER) (test fcmb=402) 18 meq/L 22-29 BLOOD UREA NITROGEN (BEAKER) (test yxwj=591) 10 mg/dL 7-21 CREATININE (BEAKER) (test aibs=662) 0.65 mg/dL 0.57-1.25 GLUCOSE RANDOM (BEAKER) (test shud=181) 126 mg/dL 70-105 CALCIUM (BEAKER) (test ftyl=429) 8.9 mg/dL 8.4-10.2 EGFR (BEAKER) (test mktl=2999) 89 mL/min/1.73 sq m ESTIMATED GFR IS NOT ACCURATE CREATININE CLEARANCE IN PREDICTING GLOMERULAR FILTRATION RATE. ESTIMATED GFR IS NOT APPLICABLE FOR DIALYSIS PATIENTS. POCT-GLUCOSE [id number] 21:31:00* Test Item Value Reference Range Comments POC-GLUCOSE METER (BEAKER) (test ikox=5260) 128 mg/dL 70-[address] [facility] [address] [facility] [address] POCT-GLUCOSE [id number] 17:26:00* Test Item Value Reference Range Comments POC-GLUCOSE METER (BEAKER) (test oirr=4630) 139 mg/dL 70-[address] [facility] [address] [facility] [address] [id number] 16:22:00* Test Item Value Reference Range Comments POTASSIUM (BEAKER) (test juqq=550) 3.6 meq/L 3.5-5.1 Add onTROPONIN [id number] 15:08:00* Test Item Value Reference Range Comments TROPONIN I (BEAKER) (test vwnn=482) 3.11 ng/mL 0.00-0.03 Troponin I (TnI) levels must be interpreted [...] failure, acidosis, acute neurological disease, and persistent tachyarrhythmia.HEMOGLOBIN AND [id number] 14: 37:00* Test Item Value Reference Range Comments HEMOGLOBIN (BEAKER) (test ofol=907) 9.2 GM/DL 11.2-15.7 HEMATOCRIT (BEAKER) (test oujj=379) 29.3 % 34.1-44.9 Post transfusionURINALYSIS W/ [id number] 12:53:00* Test Item Value Reference Range Comments COLOR (BEAKER) (test oiqg=945) Yellow CLARITY (BEAKER) (test hhyi=799) Clear SPECIFIC GRAVITY UA (BEAKER) (test enln=950) 1.028 1.001-1.035 PH UA (BEAKER) (test sooc=137) 5.5 5.0-8.0 PROTEIN UA (BEAKER) (test ltog=711) 50 mg/dL Negative GLUCOSE UA (BEAKER) (test nlqe=854) Negative Negative KETONES UA (BEAKER) (test vsee=564) 20 mg/dL Negative BILIRUBIN UA (BEAKER) (test ppzx=574) Negative Negative BLOOD UA (BEAKER) (test iein=785) Small Negative NITRITE UA (BEAKER) (test arjv=445) Negative Negative LEUKOCYTE ESTERASE UA (BEAKER) (test niic=849) Trace Negative UROBILINOGEN UA (BEAKER) (test mwzi=334) 0.2 mg/dL 0.2-1.0 RBC UA (BEAKER) (test zbll=572) 2 /HPF WBC UA (BEAKER) (test ktiy=772) 8 /HPF MUCUS (BEAKER) (test enqr=8117) Rare SQUAMOUS EPITHELIAL (BEAKER) (test irpv=328) 1 /HPF SOURCE(BEAKER) (test pceh=7009) Urine, Voided HEMOGLOBIN [id number] 11:38:00* Test Item Value Reference Range Comments HEMOGLOBIN A1C (BEAKER) (test rjpq=121) 5.8 % 4.3-6.1 RAD, CHEST, 1 VIEW, NON [id number] 10:12:00Reason for exam:->chest pain, SOBFINAL REPORT Abdomen one view Comparison: None. Reason for exam: chest pain, SOB Findings: Bowel gas pattern is nonobstructive , nonspecific. No free air is identified. There [...] No acute bony abnormality. Signed: Francisco Tyler Verified Date/Time: 2016 10:12:53 Reading Location: [facility] Reading Room , ABDOMEN/ KUB, 1 VIEW [id number] 10:12:00Reason for exam:->ileus? s/p herbie 07/26FINAL REPORT Abdomen one view Comparison: None. Reason for exam : chest pain, SOB Findings: Bowel gas pattern [...] No acute bony abnormality. Signed: Francisco Tyler Verified Date/Time: 2016 10:12:53 Reading Location: [facility] Radiology Reading Room D [id number] 09:22:00* Test Item Value Reference Range Comments TRIGLYCERIDES ([facility]) (test lntj=811) 93 mg/dL CHOLESTEROL ([facility]) (test bkho=983) 130 mg/dL HDL CHOLESTEROL ([facility]) (test druv=833) 29 mg/dL LDL CHOLESTEROL CALCULATED (BEAKER) (test zwdc=846) 82 mg/dL Triglyceride Reference Range: Low Risk <150 Borderline 150-199 High Risk 200-499 Very High Risk >=500Cholesterol Reference Range: Low Risk <200 Borderline 200-239 High Risk >240HDL Cholesterol Reference Range: Low Risk >=60 High Risk <40LDL Cholesterol Reference Range: Optimal <100 Near Optimal 100-129 Borderline 130-159 High 160-189 Very High >=190 TROPONIN [id number] 07:34:00* Test Item Value Reference Range Comments TROPONIN I (BEAKER) (test ffdx=877) 3.37 ng/mL 0.00-0.03 Troponin I (TnI) levels must be interpreted [...] failure, acidosis, acute neurological disease, and persistent tachyarrhythmia.TROPONIN [id number] 07:29:00* Test Item Value Reference Range Comments TROPONIN I (BEAKER) (test jgle=023) 3.18 ng/mL 0.00-0.03 Troponin I (TnI) levels must be interpreted [...] failure, acidosis, acute neurological disease, and persistent tachyarrhythmia.[id number] 07:21:00* Test Item Value Reference Range Comments MAGNESIUM (BEAKER) (test svru=136) 1.5 mg/dL 1.6-2.6 BASIC METABOLIC [id number] 07:21:00* Test Item Value Reference Range Comments SODIUM (BEAKER) (test njso=723) 145 meq/L 136-145 POTASSIUM (BEAKER) (test vmjt=571) 3.2 meq/L 3.5-5.1 CHLORIDE (BEAKER) (test aowk=005) 117 meq/L 98-107 CO2 (BEAKER) (test leyv=362) 22 meq/L 22-29 BLOOD UREA NITROGEN (BEAKER) (test licp=292) 10 mg/dL 7-21 CREATININE (BEAKER) (test vrak=100) 0.73 mg/dL 0.57-1.25 GLUCOSE RANDOM (BEAKER) (test tpny=616) 93 mg/dL 70-105 CALCIUM (BEAKER) (test hhcc=472) 8.6 mg/dL 8.4-10.2 EGFR (BEAKER) (test jajp=9778) 78 mL/min/1.73 sq m ESTIMATED GFR IS NOT ACCURATE CREATININE CLEARANCE IN PREDICTING GLOMERULAR FILTRATION RATE. ESTIMATED GFR IS NOT APPLICABLE FOR DIALYSIS PATIENTS. HEPATIC FUNCTION [id number] 07:21:00* Test Item Value Reference Range Comments TOTAL PROTEIN (BEAKER) (test mebh=002) 6.0 gm/dL 6.0-8.3 ALBUMIN (BEAKER) (test oxsz=1131) 2.7 g/dL 3.5-5.0 BILIRUBIN TOTAL (BEAKER) (test oqnj=787) 0.3 mg/dL 0.2-1.2 BILIRUBIN DIRECT (BEAKER) (test zyle=760) 0.2 mg/dL 0.1-0.5 ALKALINE PHOSPHATASE (BEAKER) (test itmh=868) 86 U/L 40-150 AST (SGOT) (BEAKER) (test rjkl=965) 40 U/L 5-34 ALT (SGPT) (BEAKER) (test pzah=767) 41 U/L 6-55 CBC W/PLT COUNT & AUTO [id number] 06:46:00* Test Item Value Reference Range Comments WHITE BLOOD CELL COUNT (BEAKER) (test mtki=869) 13.2 K/ L 3.5-10.5 RED BLOOD CELL COUNT (BEAKER) (test tyfm=530) 2.99 M/ L 3.93-5.22 HEMOGLOBIN (BEAKER) (test ejjw=910) 8.3 GM/DL 11.2-15.7 HEMATOCRIT (BEAKER) (test lomx=526) 27.0 % 34.1-44.9 MEAN CORPUSCULAR VOLUME (BEAKER) (test vxqc=472) 90.3 fL 79.4-94.8 MEAN CORPUSCULAR HEMOGLOBIN (BEAKER) (test pnwg=222) 27.8 pg 25.6-32.2 MEAN CORPUSCULAR HEMOGLOBIN CONC (BEAKER) (test wnam=131) 30.7 GM/DL 32.2- 35.5 RED CELL DISTRIBUTION WIDTH (BEAKER) (test riaz=318) 14.3 % 11.7-14.4 PLATELET COUNT (BEAKER) (test qjsb=905) 277 K/CU MM 150-450 MEAN PLATELET VOLUME (BEAKER) (test hwsi=506) 10.5 fL 9.4-12.3 NUCLEATED RED BLOOD CELLS (BEAKER) (test fdmy=250) 0 /100 WBC 0-0 NEUTROPHILS RELATIVE PERCENT (BEAKER) (test opyu=119) 86 % LYMPHOCYTES RELATIVE PERCENT (BEAKER) (test ucgh=519) 8 % MONOCYTES RELATIVE PERCENT (BEAKER) (test xmyq=178) 4 % EOSINOPHILS RELATIVE PERCENT (BEAKER) (test ajui=637) 1 % BASOPHILS RELATIVE PERCENT (BEAKER) (test tcqt=532) 0 % NEUTROPHILS ABSOLUTE COUNT (BEAKER) (test jpjo=226) 11.44 K/ L 1.56-6.13 LYMPHOCYTES ABSOLUTE COUNT (BEAKER) (test efgb=129) 1.03 K/ L 1.18-3.74 MONOCYTES ABSOLUTE COUNT (BEAKER) (test gjwr=230) 0.58 K/ L 0.24-0.36 EOSINOPHILS ABSOLUTE COUNT (BEAKER) (test jkdu=140) 0.10 K/ L 0.04-0.36 BASOPHILS ABSOLUTE COUNT (BEAKER) (test xmti=459) 0.02 K/ L 0.01-0.08 IMMATURE GRANULOCYTES-RELATIVE PERCENT (BEAKER) (test mzzo=1805) 1 % 0-[address] [facility] [address] [place] [address] Patient Name: BRETT FOSS MR #: [id number] : 1945 Age/Sex: 72/F Req #: [id number] Adm Physician: Ordered by: DAISY LINTON MD Report #: [id number] Location: ER Room/Bed: Procedure: [id number] CT/CT CHEST W Exam Date: Exam Time: REPORT STATUS: Signed EXAM: CT Chest WITH contrast 07/28/2017 2:04 AM INDICATION: Pulmonary embolism COMPARISON: None TECHNIQUE: Chest was scanned utilizing a multidetector helical scanner from the lung apex through the level of the diaphragm after administration of IV contrast. Thin section reconstructions were obtained with special concentration on the pulmonary arteries. Coronal and sagittal reformations were obtained. Pulmonary embolism protocol was performed. IV CONTRAST: 65 cc of Isovue-370 RADIATION DOSE: Total DLP: 483.15 mGy*cm Estimated effective dose: (DLP x 0.014 x size factor) mSv COMPLICATIONS: None FINDINGS: LINES/ TUBES: None. LUNGS AND AIRWAYS: No filling defect is identified within the pulmonary arteries to the segmental level. Confluent airspace opacity involving the left lower lobe and to a lesser extent right lower lobe compatible with atelectasis. Superimposed infection in the left lower lobe cannot be excluded. Airways are normal. PLEURA: Trace of bilateral pleural effusions HEART AND MEDIASTINUM: The thyroid gland is normal. No mediastinal, hilar or axillary lymphadenopathy. The heart is normal in size.. There is no pericardial effusion. There are moderate atherosclerotic calcifications in the aorta and coronary arteries.. Main pulmonary artery measures 3.0 cm in diameter . UPPER ABDOMEN: Cholecystectomy changes. BONES: The visualized bony thorax is within normal limits. SOFT TISSUES: Anterior abdominal wall edema and subcutaneous air most likely related to laparoscopic resection of the gallbladder IMPRESSION: 1. Small bilateral pleural effusions and bibasilar atelectasis. Confluent opacity in the left lower lobe may represent also superimposed infection. 2. Coronary artery disease. 3. No evidence of PE. Signed by: Dr. Bernabe Mejia M.D. on 07/28/2017 3:28 AM Dictated By: BERNABE ESCOBEDO MD [id number] Transcribed By: JAMES on 07/28/17327 COPY TO: DAISY LINTON MD CHEST SINGLE (PORTABLE) [place] [address] Patient Name: BRETT FOSS MR #: [id number] : 1945 Age/Sex: 72/F Req #: [id number] Adm Physician: Ordered by: DAISY LINTON MD Report #: [id number] Location: ER Room/ Bed: Procedure: [id number] DX/CHEST SINGLE (PORTABLE) Exam Date: 07/28/17 Exam Time: 0130 REPORT STATUS: Signed EXAMINATION: CHEST SINGLE (PORTABLE) INDICATION: Shortness of breath COMPARISON: None FINDINGS: TUBES and LINES: None. LUNGS: Lungs are not well inflated. There are bibasilar atelectasis. There is mild perihilar interstitial opacities, consistent with interstitial edema. PLEURA: No pleural effusion or pneumothorax. HEART AND MEDIASTINUM: Cardiac size is mildly enlarged. There are atherosclerotic calcifications within the aorta. BONES AND SOFT TISSUES: No acute osseous lesion. Soft tissues are unremarkable. UPPER ABDOMEN: No free air under the diaphragm. IMPRESSION: Mild pulmonary edema is present. Signed by: Dr. Bernabe Mejia M.D. on 2016 1:48 AM Dictated By: BERNABE ESCOBEDO MD 7 Transcribed By: JAMES on 147 COPY TO: DAISY LINTON MD CT ABDOMEN/PELVIS W [place] [address] Patient Name: BRETT FOSS MR #: [id number] : Age/Sex: 72/F Req #: [id number] [facility] Physician: Ordered by: KRISTIE BURKS MD Report #: [id number] Location: ER Room/Bed: Procedure: [id number] CT/CT ABDOMEN/PELVIS W Exam Date: 07/23/17 Exam Time: 5 REPORT STATUS: Signed EXAM: CT Abdomen and Pelvis WITH contrast INDICATION: Pancreatitis COMPARISON: None. TECHNIQUE: Abdomen and pelvis were scanned utilizing a multidetector helical scanner from the lung base to the pubic symphysis after administration of IV contrast. Coronal and sagittal reformations were obtained. Routine protocol was performed. Scan was performed when during portal venous phase. IV CONTRAST: 100 mL of Isovue-370 ORAL CONTRAST: Water RADIATION DOSE: Total DLP: 657.01 mGy*cm Estimated effective dose: (DLP x 0.015 x size factor) mSv COMPLICATIONS: None FINDINGS: LINES and TUBES: None. LOWER THORAX: Unremarkable HEPATOBILIARY: No focal hepatic lesions. No biliary ductal dilation. GALLBLADDER: There are multiple hyperdense stones in the gallbladder. There is distention of the gallbladder with mild gallbladder wall thickening SPLEEN: No splenomegaly. PANCREAS: No focal masses or ductal dilatation. No evidence of intraparenchymal edema ADRENALS: No adrenal nodules KIDNEYS/ URETERS: Kidneys enhance symmetrically. No hydronephrosis. No cystic or solid mass lesions. No stones. GI TRACT: No abnormal distention, wall thickening, or evidence of bowel obstruction. There are diverticula within the colon without evidence of diverticulitis. Appendix is not clearly identified. There is however no fat stranding or adenopathy in the right lower quadrant to suggest appendicitis. PELVIC ORGANS/BLADDER: The uterus is absent. Bilateral ovaries are unremarkable. LYMPH NODES: No lymphadenopathy. VESSELS: There is moderate atherosclerotic disease in the aorta and major arterial branches. PERITONEUM / RETROPERITONEUM: There is evidence of peripancreatic and mesenteric root edema best seen on series 2 , image 31 and 46. BONES: There are degenerative changes in the lumbar spine. SOFT TISSUES: Unremarkable. IMPRESSION: 1. Findings are suspicious for pancreatitis in the appropriate clinical setting without evidence of pancreatic necrosis. Minimal amount of fluid in the peripancreatic space. Correlation with most recent lipase and amylase is recommended 2. Distended gallbladder with radiopaque stones, are most likely the source of patient's pancreatitis. Cholecystitis cannot be completely excluded. Signed by: Dr. Bernabe Mejia M.D. on 07/23/2017 1:37 AM Dictated By: BERNABE ESCOBEDO MD 6 Transcribed By: JAMES on 07/23/17136 COPY TO: KRISTIE BURKS MD
[2018-01-28 18:41] VITALS: BP 20/64
== END 2018-01-28 18:15 | disposition home or self-care (01) ==
LOC: ER 16:11
DX: K59.00 Constipation, unspecified (principal); I25.10 Atherosclerotic heart disease of native coronary artery without angina pectoris; I10 Essential (primary) hypertension; E11.9 Type 2 diabetes mellitus without complications; K86.9 Disease of pancreas, unspecified; I25.2 Old myocardial infarction
CPT/HCPCS: 99284

== ENCOUNTER 2020-03-11 18:19 | Inpatient (IN) | payer MEDICARE, OTHER ==
[~2020-03-11] VITALS: Ht 154.9 cm; Wt 87.5 kg
[2020-03-11] MEDS ORDERED: DEXTROSE 5%/0.45% SOD CHL 1,000 ML IV ONE (18:30)
[2020-03-11 19:18] LABS: BASOPHILS % 0.2 % (0.0-1.0); HEMATOCRIT 30.5 % (34.2-44.1); HEMOGLOBIN 9.3 g/dL (12.0-16.0); LYMPHOCYTES # (AUTO) 1.5 (1.0-3.2); LYMPHOCYTES % 14.4 % (18.0-39.1); MEAN CORPUSCULAR HEMOGLOBIN 27.1 pg (28-32); MEAN CORPUSCULAR HGB CONC 30.5 g/dL (31-35); MEAN CORPUSCULAR VOLUME 88.9 fL (81-99); MONOCYTES # (AUTO) 0.6 (0.2-0.8); NEUTROPHILS # (AUTO) 7.9 (2.1-6.9); NEUTROPHILS % 78.8 % (38.7-80.0); PLATELET COUNT 255 x10e3/uL (140-360); RED BLOOD COUNT 3.43 x10e6/uL (3.6-5.1); RED CELL DISTRIBUTION WIDTH 14.4 % (11.7-14.4)
[2020-03-11 19:31] LABS: ALBUMIN 3.3 g/dL (3.5-5.0); ALBUMIN/GLOBULIN RATIO 0.8 (0.8-2.0); ANION GAP 13.3 mmol/L (8-16); CALCIUM 8.6 mg/dL (8.4-10.2); CREATININE, SERUM 1.58 mg/dL (0.57-1.11); POTASSIUM 4.3 mmol/L (3.5-5.1)
--- NOTE | 2020-03-11 21:00 | NUR ---
[employer]PER[employer] CALLED REPORT PATIENT AOX3 CX HYPOGLYCEMIA PENDING ARRIVAL TO THE FLOOR
[2020-03-11] MEDS ORDERED: ONDANSETRON HCL INJ 2MG/ML 2ML 2 MG/ML VIAL IV PRN (21:15)
[2020-03-11] MEDS ORDERED: METOPROLOL TARTRATE INJ 1 MG/ML VIAL IV PRN (21:15)
--- NOTE | 2020-03-11 21:29 | NUR ---
PATIENT AOX3, ARRIVED TO THE FLOOR, WEAKNESS NOTED, UP WITH STANBY ASSIST/WALKER, SAFETY MAINTAINED, ORIENTED TO STAFF, ROOM AND POLICIES, CALL LIGHT WITHIN REACH, IV RAC PATENT INFUSING DS1/2 NS @125CC/HR, ASSISTED TO BATHROOM, C/O DIARRHEA R/T SUGAR INNERSOLE MAKER GAVE HER
[2020-03-11 21:49] VITALS: BP 147/62
--- NOTE | 2020-03-11 21:52 | NUR ---
TEMP 101.8
[2020-03-11 22:00] VITALS: BP 147/62
[2020-03-11 22:04] VITALS: BP 147/62
[2020-03-11 22:18] VITALS: BP 147/62
[2020-03-11] MEDS: ACETAMINOPHEN 325 MG TAB PO PRN (22:30)
[2020-03-11] MEDS ORDERED: LISINOPRIL10 MG PO (23:20)
[2020-03-11] MEDS ORDERED: AMLODIPINE BESY10 MG PO (23:20)
[2020-03-11] MEDS ORDERED: ATORVASTATIN CA40 MG PO (23:20)
[2020-03-11] MEDS ORDERED: METOPROLOL SUCC50 MG PO (23:20)
[2020-03-11] MEDS ORDERED: ASPIRIN EC81 MG PO (23:20)
[2020-03-11 23:45] VITALS: BP 137/67
[2020-03-12] VITALS (12 sets, daily range): BP systolic 115–148; BP diastolic 35–82
[2020-03-12] MEDS: ACETAMINOPHEN 325 MG TAB PO PRN ×2 (05:04→16:01)
--- NOTE | 2020-03-12 05:34 | NUR ---
IV FLUID DISCONTINUED, IV SITE RAC#20g INTACT DRSG C/D/I PATIENT RESTING TOLERATED WELL
[2020-03-12 06:00] LABS: BASOPHILS % 0.2 % (0.0-1.0); EOSINOPHILS % 0.1 % (0.0-6.0); HEMATOCRIT 31.5 % (34.2-44.1); HEMOGLOBIN 9.5 g/dL (12.0-16.0); LYMPHOCYTES % 9.5 % (18.0-39.1); MEAN CORPUSCULAR HEMOGLOBIN 26.9 pg (28-32); MEAN CORPUSCULAR HGB CONC 30.2 g/dL (31-35); MEAN CORPUSCULAR VOLUME 89.2 fL (81-99); MONOCYTES # (AUTO) 0.6 (0.2-0.8); MONOCYTES % 5.8 % (4.4-11.3); NEUTROPHILS # (AUTO) 9.1 (2.1-6.9); NEUTROPHILS % 83.7 % (38.7-80.0); PLATELET COUNT 268 x10e3/uL (140-360); RED BLOOD COUNT 3.53 x10e6/uL (3.6-5.1); RED CELL DISTRIBUTION WIDTH 14.4 % (11.7-14.4)
[2020-03-12] MEDS ORDERED: ACETAMINOPHEN/CODEINE 300MG - 30MG TAB PO PRN (06:15)
[2020-03-12 06:28] LABS: ALBUMIN 3.2 g/dL (3.5-5.0); ALBUMIN/GLOBULIN RATIO 0.7 (0.8-2.0); ANION GAP 13.5 mmol/L (8-16); CALCIUM 8.4 mg/dL (8.4-10.2); CREATININE, SERUM 1.15 mg/dL (0.57-1.11); POTASSIUM 3.5 mmol/L (3.5-5.1)
--- NOTE | 2020-03-12 06:36 | NUR ---
HUB BANDER JAMIL GILL ROUNDING ON PATIENT ORDERED UA CULTURE SENSITIVITY, AND RESUME D51/2 @100CC/HR, ORDERS CARRIED OUT AND ENDORSED TO DAYSHIFT TO COMPLETE
[2020-03-12] MEDS ORDERED: CLONAZEPAM 0.5 MG TAB PO STA (06:46)
--- NOTE | 2020-03-12 07:20 | NUR ---
BSSR GIVEN TO DAYSMALICK HERNANDES, PATIENT AWAKE ALERT, UA ENDORSED TO BUFFY TO OBTAIN, IV FLUID D51/2NS CONTINUE @100CC/HR, IV PATENT, CALL LIGHT WITHIN REACH, CONTINUE TO MONITOR BLOOD SUGAR q6 HOURS
[2020-03-12 07:25] LABS: CHOL/HDL RATIO 3.6 (3.0-3.6); MAGNESIUM 2.1 MG/DL (1.3-2.1)
[2020-03-12] MEDS ORDERED: POTASSIUM CHLORIDE 20 MEQ TAB CR PO STA (07:32)
[2020-03-12 07:45] LABS: THYROID STIMULATING HORMONE 0.712 uIU/mL (0.350-4.940)
[2020-03-12] MEDS: FAMOTIDINE 20 MG/2 ML VIAL IV SCH ×2 (08:33→16:01)
[2020-03-12] MEDS: METOPROLOL SUCCINATE 50 MG TAB XL PO SCH (08:33)
[2020-03-12] MEDS: AMLODIPINE BESYLATE 10 MG TAB PO SCH (08:33)
[2020-03-12] MEDS: ASPIRIN 81 MG ENTERIC COATED PO SCH (08:33)
[2020-03-12] MEDS: DEXTROSE 5%/0.45% SOD CHL 1,000 ML IV SCH ×2 (08:37→08:40)
--- NOTE | 2020-03-12 09:06 | NUR ---
Met with Bossman Kent NP and discussed pt status. Blood glucose remains low, 55 this morning. Arrythmias during the night and poss consulting cardiology. Remains observation at this time.
[2020-03-12 11:11] LABS: BILIRUBIN,URINE NEGATIVE (NEGATIVE); CLARITY,URINE CLEAR (CLEAR); COLOR,URINE YELLOW (YELLOW); EPITHELIAL CELLS,URINE FEW /LPF; KETONES,URINE NEGATIVE (NEGATIVE); LEUKOCYTE ESTERASE ,URINE NEGATIVE (NEGATIVE); MUCUS,URINE FEW (RARE); NITRITE,URINE NEGATIVE (NEGATIVE); PROTEIN,URINE DIPSTICK NEGATIVE (NEGATIVE); RBC,URINE 0-5 /HPF (0-5); URINE UROBILINOGEN 0.2 mg/dL (0.2 - 1); WBC,URINE (MAN) 0-5 /HPF (0-5)
--- NOTE | 2020-03-12 18:50 | NUR ---
Report given to steward/stewardess night. Lying in bed with eyes open. Respiration even and unlabored without SOB. Call light in reach.
--- NOTE | 2020-03-12 19:30 | NUR ---
BSSR GIVEN FROM DAYSHIFT RN, RESUME CARE OF PATIENT, PATIETNT SEEN AWAKE ALERT, SLIGHT CONFUSION AT TIMES NOTED, SON AT BEDSIDE, PATIENT ON FALL PRECAUTIONS, PUREWICK IN PLACE TO PREVENT SKIN BREAKDOWN MAINTAIN SAFETY, PATIENT ENCOURAGED TO USE IT, OCCULT BLOOD OBTAINED AT BEGINNING OF SHIFT SENT TO LAB, PENDING RESULTS, CALL LIGHT WITHIN REACH
[2020-03-12] MEDS ORDERED: HYDRALAZINE HCL 20 MG/ML VIAL IV PRN (19:45)
[2020-03-12] MEDS: ATORVASTATIN 40 MG TAB PO SCH (20:42)
[2020-03-12] MEDS ORDERED: NON-FORMULARY MEDICATION (Atorvastatin Calcium 40 MG) PO SCH (21:00)
[2020-03-13] VITALS (8 sets, daily range): BP systolic 123–142; BP diastolic 52–59
[2020-03-13] MEDS: DEXTROSE 5%/0.45% SOD CHL 1,000 ML IV SCH ×3 (02:45→21:45)
--- NOTE | 2020-03-13 06:00 | NUR ---
PER MD HOLT, PATIENT PLACED ON DROPLET PRECAUTION, STAT COVID RE-SWAB COMPLETED THIS AM, RESULTS FAST TRACKED, FAMILY NOTIFIED OF ISOLATION AND PENDING LAB ON PATIENT
[2020-03-13 06:10] LABS: BASOPHILS % 0.4 % (0.0-1.0); HEMATOCRIT 26.7 % (34.2-44.1); HEMOGLOBIN 8.2 g/dL (12.0-16.0); LYMPHOCYTES % 25.6 % (18.0-39.1); MEAN CORPUSCULAR HEMOGLOBIN 27.5 pg (28-32); MEAN CORPUSCULAR HGB CONC 30.7 g/dL (31-35); MEAN CORPUSCULAR VOLUME 89.6 fL (81-99); MONOCYTES # (AUTO) 0.4 (0.2-0.8); MONOCYTES % 5.5 % (4.4-11.3); NEUTROPHILS # (AUTO) 5.2 (2.1-6.9); NEUTROPHILS % 67.8 % (38.7-80.0); PLATELET COUNT 269 x10e3/uL (140-360); RED BLOOD COUNT 2.98 x10e6/uL (3.6-5.1); RED CELL DISTRIBUTION WIDTH 14.8 % (11.7-14.4); RETICULOCYTE % 0.7 % (0.8-2.2)
--- NOTE | 2020-03-13 06:34 | NUR ---
PATIENT REMAIN ON ISOLATION FOR R/O MD YSABEL SHRESTHA AND MD HUNT CALLED FOR CONSULT
[2020-03-13 06:35] LABS: ANION GAP 13.1 mmol/L (8-16); CALCIUM 7.9 mg/dL (8.4-10.2); CREATININE, SERUM 1.38 mg/dL (0.57-1.11); POTASSIUM 5.1 mmol/L (3.5-5.1)
[2020-03-13 06:55] LABS: FERRITIN 473.74 ng/mL (4.63-204.00)
[2020-03-13] MEDS: AMLODIPINE BESYLATE 10 MG TAB PO SCH (08:28)
[2020-03-13] MEDS: FAMOTIDINE 20 MG/2 ML VIAL IV SCH ×2 (08:28→16:43)
[2020-03-13] MEDS: ASPIRIN 81 MG ENTERIC COATED PO SCH (08:28)
[2020-03-13] MEDS: METOPROLOL SUCCINATE 50 MG TAB XL PO SCH (08:29)
[2020-03-13] MEDS: ACETAMINOPHEN 325 MG TAB PO PRN (08:29)
--- NOTE | 2020-03-13 09:55 | Diagnostic Imaging Report ---
EXAMINATION: CHEST SINGLE (PORTABLE) INDICATION: Shortness of breath, cough COMPARISON: None FINDINGS: LINES/TUBES:EKG leads overlie the chest. LUNGS:The lungs are well-inflated. No focal consolidation or pulmonary edema. PLEURA:No pleural effusion or pneumothorax. MEDIASTINUM:The cardiomediastinal silhouette appears normal in size and shape. BONES/SOFT TISSUES:No acute osseous injury. ABDOMEN:No free air under the diaphragm. IMPRESSION: No focal consolidation or pulmonary edema. Signed by: Shanelle Ge MD on 03/13/2020 9:51 AM
[2020-03-13] MEDS: IRON SUCROSE 100 MG in SODIUM CHLORIDE 0.9% 100 ML 100 ML IV SCH (11:00)
[2020-03-13] MEDS ORDERED: EPOETIN ALFA-EPBX 10,000 UNIT/ML VIAL SC ONE (15:00)
--- NOTE | 2020-03-13 15:55 | NUR ---
BARRY NEGRON PALLIATIVE CARE SPECIALIST AND INFORMED PT BLOOD SUGAR [id number].
[2020-03-13] MEDS ORDERED: DEXTROSE 50% SYRINGE 50 ML IV PRN (16:15)
[2020-03-13] MEDS: CEFTRIAXONE SOD 1 GM/NS 50 ML 50 ML IV SCH (16:43)
[2020-03-13 16:56] LABS: CLARITY,URINE SL CLOUDY (CLEAR); COLOR,URINE YELLOW (YELLOW); KETONES,URINE NEGATIVE (NEGATIVE); LEUKOCYTE ESTERASE ,URINE NEGATIVE (NEGATIVE); NITRITE,URINE NEGATIVE (NEGATIVE); PROTEIN,URINE DIPSTICK 2+ (NEGATIVE); URINE UROBILINOGEN 0.2 mg/dL (0.2 - 1)
[2020-03-13 16:57] LABS: BILIRUBIN,URINE NEGATIVE (NEGATIVE)
[2020-03-13] MEDS: INSULIN REGULAR, HUMAN 100 UNIT/1 ML 3ML VIAL SQ SCH ×2 (17:00→21:00)
[2020-03-13 17:18] LABS: BACTERIA,URINE MANY /HPF; EPITHELIAL CELLS,URINE RARE /LPF; RBC,URINE 0-5 /HPF (0-5)
--- NOTE | 2020-03-13 17:50 | NUR ---
CALL RECEIVED FROM LAB REGARDING PT COVID TEST RESULT. INFORMED THE RESULT TO JAMIL MATTHEWS NP AND STAVE AND BOLT EQUALIZER.
[2020-03-13] MEDS ORDERED: SODIUM CHLORIDE 0.9% 1000ML 1,000 ML IV ONE (18:45)
--- NOTE | 2020-03-13 19:05 | NUR ---
BEDSIDE SHIFT REPORT GIVEN TO THE BUFFING WHEEL OPERATOR RN. PT DENIED FURTHER NEEDS.
--- NOTE | 2020-03-13 19:20 | NUR ---
Patient received lying in bed. AAO x 3. Patient had no complaints of pain. Respirations even and non-labored.
--- NOTE | 2020-03-13 19:25 | NUR ---
Patient received lying in bed. AAO x 3. Patient had no complaints of pain. Respirations even and non-labored on 2L NC. Respiratory therapist performed O2 evaluation for patient on room air and recorded 82%. Safety measures in place. Patient instructed to call for assistance when needed. Call light within reach.
--- NOTE | 2020-03-13 19:44 | NUR ---
Report given to Yrn Gabriel (RN) regarding patient status. Patient would be transferred to Room 179
--- NOTE | 2020-03-13 21:00 | NUR ---
Patient transferred to Room 179. Patient in stable condition.
[2020-03-13] MEDS: ATORVASTATIN 40 MG TAB PO SCH (21:12)
--- NOTE | 2020-03-13 22:10 | Consultation ---
DATE OF CONSULTATION: Pulmonary Critical Care Consultation CHIEF COMPLAINT: Fever, possible COVID. HISTORY OF PRESENT ILLNESS: The patient is a 74-year-old woman. She has a history of diabetes. She came into the hospital because of low blood sugar. She was subsequently found to have a fever. She does report some dyspnea. She does not have cough. She denies chest pain. She has no nausea or vomiting. PAST SURGICAL HISTORY: 1. Status post cholecystectomy. 2. Status post hysterectomy. PAST MEDICAL HISTORY: 1. Coronary artery disease. 2. Hypertension. 3. Myocardial infarction in 2017. 4. Diabetes. FAMILY HISTORY: Family history is significant for diabetes. SOCIAL HISTORY: The patient lives with her family. 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 She is not a known smoker or drinker. ALLERGIES: THERE ARE NO KNOWN DRUG ALLERGIES. REVIEW OF SYSTEMS: She denies headache. She did have some fevers. She denies chest pain. She has some dyspnea. She denies abdominal pain. She has no diarrhea. She has no leg edema. PHYSICAL EXAMINATION: VITAL SIGNS: The patient is afebrile. The blood pressure is 129/55 and saturation is 93% on 2 L. HEENT: Shows no facial swelling or erythema. CARDIAC: Reveals regular rate and rhythm with normal S1 and S2. LUNGS: Auscultation of lungs reveals rhonchorous breath sounds bilaterally. There is no wheezing. ABDOMEN: Soft and nontender. There is no rebound or guarding. EXTREMITIES: Shows no leg edema or calf tenderness. There is no cyanosis or clubbing. SKIN: Shows no rashes. NEUROLOGICAL: Shows no focal abnormalities. LABORATORY DATA: White blood cell count is 7.63 and hemoglobin is 8.2. The platelet count is 269. The BUN to creatinine ratio is 27 to 1.98. Other electrolytes are within normal limits. Iron saturation is low at 6%. RADIOGRAPHIC DATA: Chest x-ray shows no active disease. IMPRESSION: 1. Fever of unclear cause. 2. Diabetes with hypoglycemia. 3. Acute kidney injury. 4. Microcytic anemia with iron deficiency. PLAN: 1. Await cultures and COVID test. 2. Continue current Rocephin. 3. IV fluids. 4. Repeat creatinine tomorrow. 5. Evaluation for microcytic anemia. MD MEGHANN Aranda/MODL /[id number]
[2020-03-14] VITALS (7 sets, daily range): BP systolic 119–150; BP diastolic 50–67
[2020-03-14 05:17] LABS: BASOPHILS % 0.4 % (0.0-1.0); EOSINOPHILS % 0.3 % (0.0-6.0); HEMATOCRIT 28.7 % (34.2-44.1); HEMOGLOBIN 8.9 g/dL (12.0-16.0); LYMPHOCYTES # (AUTO) 1.6 (1.0-3.2); LYMPHOCYTES % 21.8 % (18.0-39.1); MEAN CORPUSCULAR HEMOGLOBIN 27.2 pg (28-32); MEAN CORPUSCULAR VOLUME 87.8 fL (81-99); MONOCYTES # (AUTO) 0.5 (0.2-0.8); MONOCYTES % 7.2 % (4.4-11.3); NEUTROPHILS % 69.3 % (38.7-80.0); PLATELET COUNT 307 x10e3/uL (140-360); RED BLOOD COUNT 3.27 x10e6/uL (3.6-5.1)
[2020-03-14 05:38] LABS: ANION GAP 10.4 mmol/L (8-16); CALCIUM 8.4 mg/dL (8.4-10.2); CREATININE, SERUM 1.05 mg/dL (0.57-1.11); POTASSIUM 4.4 mmol/L (3.5-5.1)
--- NOTE | 2020-03-14 05:42 | Consultation ---
DATE OF CONSULTATION: 03/13/2020 Thank you, Dr. Ochoa, for this consultation HISTORY OF PRESENT ILLNESS: This is a very pleasant female with a history of hypertension and hyperlipidemia. She is currently in hospital with worsening lethargy, hypoglycemia. She has persistent abdominal pain, nausea, vomiting, and loose motion in hospital. No fever or chills reported. She has worsening anemia during hospital stay. Hemoglobin went down to 8. She has low borderline MCV. No history of any active GI bleed. AST, ALT were normal. Creatinine was slightly elevated at 1.38. She has history of anemia in the past. No other symptoms noted. PAST MEDICAL HISTORY: Hypertension, hyperlipidemia. ALLERGIES: NKDA. MEDICATIONS: List reviewed. SOCIAL HISTORY: No current habits. REVIEW OF SYSTEMS: A 12-point review as per the HPI. PHYSICAL EXAMINATION: GENERAL: Alert, awake, communicative. HEENT: Normocephalic, atraumatic. Sclerae pale. Conjunctiva clear. NECK: Supple. CHEST: Decreased breath sounds at bases. CARDIOVASCULAR: Regular rate and rhythm. ABDOMEN: Soft. EXTREMITIES: No edema. LAB AND IMAGING: Reviewed. ASSESSMENT AND PLAN: The patient with history of multiple medical condition including worsening anemia. Possibility of anemia of chronic disease and also possibility of iron deficiency. She is already started on iron treatment. We will complete anemia workup. Epogen if no response with iron. Continue remaining care. Try to avoid frequent blood draw. We will follow. MD WARD Jerry/ADELE /[id number]
--- NOTE | 2020-03-14 06:57 | NUR ---
REPORT GIVEN TO DAYSHIFT NURSE. RESTING IN BED. NO SIGNS IV INFILTRATION. BED LOCKED AND IN LOW POSITION. CALL LIGHT WITHIN REACH. BED ALARM ACTIVATED.
--- NOTE | 2020-03-14 08:29 | NUR ---
GAVE PACKET OF INFORMATION WITH COMM[facility]ITY [facility] FOR ASSISTANCE WITH LOW TO NO INCOME TO PATIENT. RESOURCES THAT PATIENT MAY BE ABLE TO FOLLOW UP UPON DISCHARGE. PT EDUCATED ON EACH RESOURCE AND UNDERSTANDING HOW TO FOLLOW UP TO SEE IF QUALIFIED FOR EACH RESOURCE.
--- NOTE | 2020-03-14 08:30 | NUR ---
aware patient T101.8 on 03/13/20
[2020-03-14] MEDS: ASPIRIN 81 MG ENTERIC COATED PO SCH (09:05)
[2020-03-14] MEDS: AMLODIPINE BESYLATE 10 MG TAB PO SCH (09:05)
[2020-03-14] MEDS: FAMOTIDINE 20 MG/2 ML VIAL IV SCH ×2 (09:05→16:54)
[2020-03-14] MEDS: INSULIN REGULAR, HUMAN 100 UNIT/1 ML 3ML VIAL SQ SCH ×5 (09:06→21:00)
[2020-03-14] MEDS: METOPROLOL SUCCINATE 50 MG TAB XL PO SCH (09:06)
[2020-03-14] MEDS ORDERED: DEXAMETHASONE SOD PHOS 10 MG/1 ML VIAL IV NR (10:15)
[2020-03-14] MEDS ORDERED: ALBUTEROL/IPRATROPIUM 3 ML NEB NEB SCH (10:15)
[2020-03-14] MEDS ORDERED: DEXAMETHASONE PHOS 4MG/ML 5ML MULTIDOSE VIAL IV SCH (10:30)
[2020-03-14] MEDS: IRON SUCROSE 100 MG in SODIUM CHLORIDE 0.9% 100 ML 100 ML IV SCH (11:00)
[2020-03-14] MEDS: AZITHROMYCIN 500MG/NS 250 ML 250 ML IV SCH (12:00)
--- NOTE | 2020-03-14 12:00 | NUR ---
Patient states "i saw dust come up from the floor. Can I have someone sit with me?" notified patient there is no dust. Patient AAOx3 to time, person, place. SPO2 91% on 6L NC. Educated patient to use distraction methods such as talking to family on the phone. Naina Nice aware of patient's status.
[2020-03-14] MEDS: LISINOPRIL 10 MG TAB PO SCH (12:31)
[2020-03-14] MEDS: ZINC SULFATE 220 MG CAP PO SCH (12:31)
[2020-03-14] MEDS: ASCORBIC ACID 500 MG TAB PO SCH ×2 (12:31→16:54)
[2020-03-14] MEDS: CEFTRIAXONE SOD 1 GM/NS 50 ML 50 ML IV SCH (16:53)
[2020-03-14] MEDS: DEXTROSE 5%/0.45% SOD CHL 1,000 ML IV SCH (16:54)
--- NOTE | 2020-03-14 18:35 | Progress Note ---
DATE: SUBJECTIVE: The patient is on 6 L of oxygen. She has some mild tachypnea. She does not complain of fever. She has some mild cough. PHYSICAL EXAMINATION: VITAL SIGNS: Blood pressure is 132/57, saturation is 91%. HEENT: Shows no facial swelling or erythema. CARDIAC: Reveals regular rate and rhythm with normal S1 and S2. LUNGS: Auscultation of the lungs reveals crackles at the bases. There is no wheezing. ABDOMEN: Soft and nontender. There is no rebound or guarding. EXTREMITIES: Shows no leg edema or calf tenderness. There is no cyanosis or clubbing. SKIN: Shows no rashes. NEUROLOGICAL: Shows no focal abnormalities. LABORATORY DATA: BUN to creatinine ratio is 24 to 1.05. Other electrolytes are within normal limits. White blood cell count is 7.2 and hemoglobin is 8.9. The platelet count is 307. IMPRESSION: 1. COVID-19 and viral pneumonia. 2. Acute kidney injury. 3. Microcytic anemia. 4. Hypertension. PLAN: 1. Continue antibiotics. 2. Continue Decadron. 3. Oxygen as needed. 4. Continue to monitor renal function. 5. Continue to monitor blood counts. 6. Continue to monitor blood sugars. 7. Repeat chest x-ray tomorrow morning. Mike Jasmine MD [facility]/MODL /[id number]
--- NOTE | 2020-03-14 19:13 | NUR ---
Report given to oncoming nurse of patients status. Resting in bed. No s/s of acute distress noted. Side rails upx2, call light within reach, bed alarm on
[2020-03-14] MEDS: ATORVASTATIN 40 MG TAB PO SCH (21:00)
--- NOTE | 2020-03-14 21:06 | Consultation ---
DATE OF CONSULTATION: REASON FOR CONSULTATION: COVID-19. HISTORY OF PRESENT ILLNESS: This patient who is a 74-year-old female, who has history of diabetes, comes to the emergency room with low blood glucose. The patient was short of breath. The patient was admitted. The patient has history of hysterectomy, cholecystectomy, coronary artery disease, hypertension, myocardial infarction. She came with shortness of breath, but apparently seems to be getting worse today. The patient to have her physical examination, she is currently on 8 L. PAST MEDICAL HISTORY: As above. PAST SURGICAL HISTORY: As above. ALLERGIES: NKA. SOCIAL HISTORY: There is no smoking, drug abuse, or alcohol abuse. LABORATORY DATA: Her urine culture showing gram-negative bacilli 10-50,000. White count 7.19, hemoglobin 8.9, platelet of 307. Her sodium 132, potassium 4.4 with creatinine 1.05. Her chest x-ray was negative. PHYSICAL EXAMINATION: GENERAL: She is currently alert, oriented, does not seem in acute distress. VITAL SIGNS: Stable. Currently afebrile. HEENT: She is not icteric. NECK: Supple. CHEST: Clear. HEART: S1, S2. No murmur. ABDOMEN: Soft. IMPRESSION: Coronavirus disease-19, urinary tract infection, hypoglycemia. Chest x-ray does not reveal pneumonia yet. I would recommend Rocephin 1 g daily. Supplement with oxygen. Her hypoglycemia could be due to sepsis or hypoglycemia. We will reassess. I am not so sure if she has coronavirus disease-19 pneumonia at present time, maybe she has upper respiratory infection. We will follow. MD FORD Potter/MODL /[id number]
[2020-03-15] VITALS: BP 131/61
[2020-03-15] MEDS ORDERED: SODIUM CHLORIDE 0.9% 1000ML 1,000 ML IV SCH (03:30)
[2020-03-15 04:00] VITALS: BP 160/63
[2020-03-15 07:17] LABS: BASOPHILS % 0.3 % (0.0-1.0); HEMATOCRIT 33.2 % (34.2-44.1); HEMOGLOBIN 10.4 g/dL (12.0-16.0); LYMPHOCYTES # (AUTO) 1.1 (1.0-3.2); LYMPHOCYTES % 15.4 % (18.0-39.1); MEAN CORPUSCULAR HEMOGLOBIN 27.1 pg (28-32); MEAN CORPUSCULAR HGB CONC 31.3 g/dL (31-35); MEAN CORPUSCULAR VOLUME 86.5 fL (81-99); MONOCYTES # (AUTO) 0.5 (0.2-0.8); MONOCYTES % 7.1 % (4.4-11.3); NEUTROPHILS # (AUTO) 5.2 (2.1-6.9); NEUTROPHILS % 74.7 % (38.7-80.0); PLATELET COUNT 382 x10e3/uL (140-360); RED BLOOD COUNT 3.84 x10e6/uL (3.6-5.1); RED CELL DISTRIBUTION WIDTH 13.7 % (11.7-14.4)
--- NOTE | 2020-03-15 07:24 | NUR ---
REPORT GIVEN TO DAYSHIFT NURSE. AAOX3. NO SIGNS IV INFILTRATION. BED LOCKED AND IN LOW POSITION. CALL LIGHT WITHIN REACH. BED ALARM ACTIVATED.
[2020-03-15] MEDS: INSULIN REGULAR, HUMAN 100 UNIT/1 ML 3ML VIAL SQ SCH ×3 (07:30→16:30)
[2020-03-15 07:43] LABS: ALBUMIN 2.5 g/dL (3.5-5.0); ALBUMIN/GLOBULIN RATIO 0.5 (0.8-2.0); ANION GAP 14.8 mmol/L (8-16); CALCIUM 9.2 mg/dL (8.4-10.2); CREATININE, SERUM 1.04 mg/dL (0.57-1.11); POTASSIUM 4.8 mmol/L (3.5-5.1)
[2020-03-15 08:36] VITALS: BP 150/65
--- NOTE | 2020-03-15 08:43 | Diagnostic Imaging Report ---
EXAMINATION: CHEST SINGLE (PORTABLE) INDICATION: ^resp failure ^[id number] ^[id number]. COMPARISON: None FINDINGS: AP view TUBES and LINES: None. LUNGS: Interval increased bilateral peripheral and basilar consolidative opacities. PLEURA: No pleural effusion or pneumothorax. HEART AND MEDIASTINUM: The cardiomediastinal silhouette is stable. BONES AND SOFT TISSUES: No acute osseous lesion. Soft tissues are unremarkable. UPPER ABDOMEN: No free air under the diaphragm. IMPRESSION: Interval development of peripheral and basilar consolidative opacities in typical pattern of COVID-19 pneumonia. Signed by: Sandor Cavazos MD on 03/15/2020 8:39 AM
[2020-03-15 08:50] VITALS: BP 150/65
[2020-03-15] MEDS ORDERED: DEXAMETHASONE PHOS 4MG/ML 5ML MULTIDOSE VIAL IV SCH (09:00)
[2020-03-15] MEDS: AMLODIPINE BESYLATE 10 MG TAB PO SCH (09:16)
[2020-03-15] MEDS: FAMOTIDINE 20 MG/2 ML VIAL IV SCH ×2 (09:16→16:32)
[2020-03-15] MEDS: LISINOPRIL 10 MG TAB PO SCH (09:16)
[2020-03-15] MEDS: ASPIRIN 81 MG ENTERIC COATED PO SCH (09:16)
[2020-03-15] MEDS: ASCORBIC ACID 500 MG TAB PO SCH ×2 (09:17→16:33)
[2020-03-15] MEDS: ZINC SULFATE 220 MG CAP PO SCH (09:17)
[2020-03-15] MEDS: METOPROLOL SUCCINATE 50 MG TAB XL PO SCH (09:17)
[2020-03-15] MEDS: AZITHROMYCIN 500MG/NS 250 ML 250 ML IV SCH (09:18)
--- NOTE | 2020-03-15 09:27 | Progress Note ---
DATE: SUBJECTIVE: The patient feels slightly better. She has had little less dyspnea. She is down to 4 L and is saturating better. PHYSICAL EXAMINATION: VITAL SIGNS: Blood pressure is 150/65, saturation is 97% on 4 L, pulse is 78 and respiratory rate is 17. HEENT: Shows no facial swelling or erythema. CARDIAC: Reveals a regular rate and rhythm with normal S1 and S2. LUNGS: Auscultation of lungs reveals rhonchorous breath sounds bilaterally. There is no wheezing. ABDOMEN: Soft and nontender. There is no rebound or guarding. EXTREMITIES: Shows no leg edema or calf tenderness. There is no cyanosis or clubbing. SKIN: Shows no rashes. NEUROLOGICAL: Shows no focal abnormalities. LABORATORY DATA: BUN to creatinine ratio is 22 to 1.04. Carbon dioxide is 18 and albumin is 2.5. White blood cell count is 6.9 and hemoglobin is 10.4. The platelet count is 382. RADIOGRAPHIC DATA: Chest x-ray shows some interval development of peripheral bibasilar opacities, typical viral pneumonia. IMPRESSION: 1. COVID-19 and viral pneumonia. 2. Acute kidney injury. 3. Microcytic anemia. 4. Hypertension. PLAN: 1. Continue oxygen. 2. Continue Decadron. 3. Antibiotics. 4. Continue to monitor renal function. 5. Continue to monitor blood sugars. 6. Continue Lovenox for DVT prophylaxis. Mike Jasmine MD [facility]/FLORINL /[id number]
[2020-03-15] MEDS ORDERED: ENOXAPARIN SOD INJ 40 MG/0.4 ML SYR SC SCH (09:30)
--- NOTE | 2020-03-15 09:33 | Progress Note ---
DATE: SUBJECTIVE: The patient is seen and examined. Chart was also reviewed. The patient's current hemoglobin improved to 10.4. Clinically doing better. Following ID very closely. PHYSICAL EXAMINATION: GENERAL: Alert, awake, communicative. HEENT: Normocephalic, atraumatic. Sclerae pink. Conjunctiva clear. NECK: Supple. CHEST: Decreased breath sounds at bases. ABDOMEN: Soft. CARDIOVASCULAR: Regular rate and rhythm. EXTREMITIES: No edema. LABORATORY AND IMAGING DATA: Reviewed. ASSESSMENT AND PLAN: The patient with history of multiple medical condition. I am currently following for iron deficiency anemia and also anemia of chronic disease. The patient's hemoglobin is trending upward. Last ferritin level was elevated. RECOMMENDATION: To continue current care. Avoid frequent blood drawn. Monitor CBC. We will follow. Coronavirus disease-19 UTI. Following ID. On Rocephin. On oxygen. We will follow ID recommendations. We will follow patient. MD WARD Jerry/ADELE /[id number]
[2020-03-15] MEDS ORDERED: ZITHROMAX500 MG PO (10:40)
[2020-03-15] MEDS ORDERED: ALBUTEROL S5 MG/1 ML IH (10:41)
[2020-03-15] MEDS ORDERED: KEFLEX500 MG PO (10:49)
[2020-03-15] MEDS: IRON SUCROSE 100 MG in SODIUM CHLORIDE 0.9% 100 ML 100 ML IV SCH (10:56)
[2020-03-15 11:24] LABS: LYMPHOCYTES % (MANUAL) 11 % (19-48); MONOCYTES % (MANUAL) 3 % (3.4-9.0); MYELOCYTES % (MANUAL) 3 % (0-0); NEUTROPHILS % (MANUAL) 83 % (40-74); PLATELET ESTIMATE SLIGHTLY INCREASED; PLATELET MORPHOLOGY COMMENT NORMAL; RBC MORPHOLOGY COMMENT NORMAL
--- NOTE | 2020-03-15 11:31 | NUR ---
RA 94% upon exertion patient spo2 decreased to 82%. Exerted patient with 3L NC SPO2 93%. Leslie Stephens NP aware
[2020-03-15 11:42] VITALS: BP_SYST 136; BP_SYST 177; BP_DIAS 54; BP_DIAS 89
--- NOTE | 2020-03-15 11:53 | Progress Note ---
DATE: SUBJECTIVE: The patient is seen and evaluated. Available labs and notes reviewed. REVIEW OF SYSTEMS: The patient ate well, feels great. No nausea, vomiting, fever, chills, or chest pain. No significant shortness of breath. She states that she did really well for the first time last night. MEDICATIONS: Medication list is reviewed. From ID point of view, the patient is on Zithromax, vitamin C, dexamethasone, and Rocephin. LABORATORY STUDIES: White count of 6.9, hemoglobin 10.4, and platelet 382. Sodium 137, potassium 4.8, and creatinine 1.04. Serology: Coronavirus detected on 03/13/2020. MICROBIOLOGY: Urine culture showed 10,000-50,000 CFU per mL of E coli, pansensitive. IMAGING: Chest x-ray from today showed interval development of perihilar and basilar consolidative opacities in a typical pattern of COVID-19 pneumonia, but the patient clinically "feels great." PHYSICAL EXAMINATION: VITAL SIGNS: Temperature 97.5, pulse 78, respirations 17, blood pressure 150/65, and O2 saturation 97% documented of 4 L of nasal cannula. However, the patient did not have nasal cannula during my visit. GENERAL: Alert and oriented, no acute distress. CV: S1-S2. CHEST: Equal expansion. Clear to auscultation. No acute distress. ABDOMEN: Soft. Nontender. No distention. HEENT: Moist. No pallor. No JVD. ASSESSMENT AND PLAN: 1. Coronavirus disease-19, on admission. 2. Urinary tract infection. 3. Hyperglycemia. Clinically, the patient has improved, okay to discharge. The patient with Zithromax for 3 days and Keflex for 5 days. This case was discussed with Dr. Perez. Discussed with attending team. Please refer to chart for more information. Dictated by Mckinley Chew PA-C (Al) Nerissa Perez MD /MODL /[id number]
[2020-03-15] MEDS ORDERED: INSULIN REGULAR, HUMAN 100 UNIT/1 ML 3ML VIAL SQ ONE ×2 (12:00→16:30)
[2020-03-15] MEDS ORDERED: ONDANSETRON HCL 4 MG ORAL DISINTEGRATING TAB PO PRN (15:30)
[2020-03-15 15:42] VITALS: BP 152/63
--- NOTE | 2020-03-15 16:10 | NUR ---
ORDERS TO ARRANGE HOME 02 FOR DISCHARGE SATS ON ROOM AIR 88% CHOICE LETTER SIGNED FOR [facility] AND ORDER FAXED TO [facility] AT [phone] CONFIRMATION REC'D PORTABLE TANK DELIVERED TO PT'S ROOM INSTRUCTED PT TO CALL [facility] WHEN SHE ARRIVES HOME AT [phone] SO THAT CONCENTRATOR CAN BE DELIVERED IMM EXPLAINED TO PT, SIGNED BY PT AND PLACED IN CHART COPY OF IMM AND CHOICE LETTER ALONG WITH MY BUSINESS CARD GIVEN TO PT VERIFIED PT'S ADRESS AND PHONE NUMBER CORRECT ON FACE SHEET PLAN DC HOME THIS EVENING AFTER VQ SCAN
--- NOTE | 2020-03-15 16:19 | NUR ---
Leslie Stephens NP aware of [facility] 338. See orders.
[2020-03-15] MEDS: CEFTRIAXONE SOD 1 GM/NS 50 ML 50 ML IV SCH (16:33)
--- NOTE | 2020-03-15 18:40 | NUR ---
Left FA IV discontinued. No signs of infiltration noted. 2x2 gauze and coban placed. Taken via wheelchair to personal car. AAOX3 to time, person,place.Respirations even and unlabored. O2 3L NC via home O2.Discharge instructions,rx, walker, and all personal belongings taken with patient.
[2020-03-16] MEDS ORDERED: AZITHROMYCIN 250 MG TAB PO SCH (10:00)
--- NOTE | 2020-03-16 22:46 | Discharge Summary ---
ADMISSION DIAGNOSES: Type 2 diabetes with hypoglycemia, fever of unknown origin, hypertension, anxiety, sinus tachycardia, likely due to anxiety, acute kidney injury, anemia, hyperlipidemia. DISCHARGE DIAGNOSES: Type 2 diabetes with hypoglycemia, fever of unknown origin, hypertension, anxiety, sinus tachycardia, likely due to anxiety, acute kidney injury, anemia, hyperlipidemia, Escherichia coli urinary tract infection, present on admission, coronavirus disease 2019 pneumonia, present on admission. HISTORY: Gallstone pancreatitis, type 2 diabetes, hyperlipidemia, CAD, DE, hypertension, obesity, and anxiety. SURGICAL HISTORY: Cholecystectomy and hysterectomy. FAMILY HISTORY: The patient's brother had diabetes. SOCIAL HISTORY: Noncontributory. HOSPITAL COURSE: A 74-year-old female brought from home to the ER due to a fingerstick glucose of 59. She was started on D5 fluids. Diabetic medications were held on admission. Chest x-ray showed no consolidation or pneumonia. COVID-19 came back positive. The patient is on 3 L/minute. Stool for occult blood was negative. Urine culture came back positive for E coli, which was pansensitive. The patient will discharge home with oxygen at 3 L/minute after oxygen evaluation. Initially, Pulmonology ordered V/Q scan, but later canceled it. The patient was given Keflex and Zithromax per ID recommendation and albuterol inhaler p.r.n. She will follow up with primary care in 1 to 2 weeks. She does not want physical therapy in her home, so she refused home health. Vital signs stable, the patient is afebrile. Dictated by Leslie Stephens NP MD CORBIN Martinez/MODL /[id number]
== END 2020-03-15 18:40 | disposition home or self-care (01) | DRG 177 ==
LOC: ER 18:56 → ERHOLD 20:01 → MED/SURG2 21:14 → OBSVTOIN 03-12 11:45 → MED/SURG2 03-13 17:41 → IMCU 03-13 21:10
PROVIDERS: ADMIT Internal Medicine; ATTEND Internal Medicine
DX: U07.1 COVID-19 (principal); J12.89 Other viral pneumonia; N39.0 Urinary tract infection, site not specified; N17.9 Acute kidney failure, unspecified; E11.649 Type 2 diabetes mellitus with hypoglycemia without coma; Z79.4 Long term (current) use of insulin; F41.9 Anxiety disorder, unspecified; E78.5 Hyperlipidemia, unspecified; B96.20 Unspecified Escherichia coli [E. coli] as the cause of diseases classified elsewhere; I25.2 Old myocardial infarction; I25.10 Atherosclerotic heart disease of native coronary artery without angina pectoris; D63.8 Anemia in other chronic diseases classified elsewhere; Z90.49 Acquired absence of other specified parts of digestive tract; D50.9 Iron deficiency anemia, unspecified
CPT/HCPCS: 36415; 71045; 80048; 80053; 80061; 81001; 82270; 82607; 82728; 82746; 82948; 83036; 83540; 83690; 83735; 84100; 84443; 84466; 85025; 85045; 87086; 87186; 87635; 93005; 93306; 97139; 99284; G0378; J0456; J0696; J1100; J1650; J1756; J1817; J7030

== ENCOUNTER → 2020-12-15 | Outpatient (CLI) | payer OTHER ==
[~2020-12-15] MED LIST changes: +ALBUTEROL S5 MG/1 ML IH; +AMLODIPINE BESY10 MG PO; +ASPIRIN EC81 MG PO; +ATORVASTATIN CA40 MG PO; +KEFLEX500 MG PO; +LISINOPRIL10 MG PO; +METOPROLOL SUCC50 MG PO; +ZITHROMAX500 MG PO
== END ==
LOC: MAMMO 09:29
PROVIDERS: ATTEND Internal Medicine
DX: Z12.31 Encounter for screening mammogram for malignant neoplasm of breast (principal)
CPT/HCPCS: 77067

== ENCOUNTER 2021-12-30 20:15 | Emergency (ER) | payer MEDICARE, OTHER ==
[~2021-12-30] VITALS: Ht 307.3 cm; Wt 87.5 kg
[2021-12-30 20:34] LABS: BASOPHILS # (AUTO) 0.1 (0.0-0.1); BASOPHILS % 0.5 % (0.0-1.0); EOSINOPHILS # (AUTO) 0.2 (0.0-0.4); EOSINOPHILS % 1.6 % (0.0-6.0); HEMATOCRIT 34.9 % (34.2-44.1); HEMOGLOBIN 11.1 g/dL (12.0-16.0); LYMPHOCYTES # (AUTO) 4.1 (1.0-3.2); LYMPHOCYTES % 32.8 % (18.0-39.1); MEAN CORPUSCULAR HEMOGLOBIN 29.1 pg (28-32); MEAN CORPUSCULAR HGB CONC 31.8 g/dL (31-35); MEAN CORPUSCULAR VOLUME 91.4 fL (81-99); MONOCYTES # (AUTO) 0.6 (0.2-0.8); MONOCYTES % 4.9 % (4.4-11.3); NEUTROPHILS # (AUTO) 7.4 (2.1-6.9); NEUTROPHILS % 59.7 % (38.7-80.0); PLATELET COUNT 373 x10e3/uL (140-360); RED BLOOD COUNT 3.82 x10e6/uL (3.6-5.1); RED CELL DISTRIBUTION WIDTH 13.5 % (11.7-14.4)
[2021-12-30 20:46] LABS: INR 0.87; PROTHROMBIN TIME 12.6 seconds (11.9-14.5)
[2021-12-30 20:55] LABS: ALBUMIN/GLOBULIN RATIO 0.9 (0.8-2.0); ANION GAP 14.9 mmol/L (8-16); CALCIUM 9.5 mg/dL (8.4-10.2); CREATININE, SERUM 1.24 mg/dL (0.57-1.11); POTASSIUM 3.9 mmol/L (3.5-5.1)
[2021-12-30] MEDS ORDERED: IOPAMIDOL 370 MG/ML 100 ML INFUS..BTL INJ ONE (21:18)
[2021-12-30] MEDS ORDERED: SODIUM CHLORIDE 0.9% 100 ML ONE (21:18)
[2021-12-30 23:19] VITALS: BP 138/52
== END 2021-12-30 23:21 | disposition home or self-care (01) ==
LOC: ER 20:19
DX: K92.2 Gastrointestinal hemorrhage, unspecified (principal); E11.65 Type 2 diabetes mellitus with hyperglycemia; I10 Essential (primary) hypertension; K43.9 Ventral hernia without obstruction or gangrene; I25.2 Old myocardial infarction
CPT/HCPCS: 36415; 74174; 80053; 85025; 85610; 93005; 99284; J7050; Q9967

== ENCOUNTER 2022-01-01 18:12 | Inpatient (IN) | payer MEDICARE, OTHER ==
[2022-01-01] VITALS (11 sets, daily range): BP systolic 95–123; BP diastolic 36–52
[~2022-01-01] VITALS: Ht 167.6 cm; Wt 77.6 kg
[2022-01-01] MEDS ORDERED: ONDANSETRON HCL INJ 2MG/ML 2ML 2 MG/ML VIAL IV PRN ×2 (18:45→23:30)
[2022-01-01] MEDS ORDERED: Morphine 4mg Syringe 4 MG/ML INJ IV PRN (18:45)
[2022-01-01] MEDS ORDERED: SODIUM CHLORIDE 0.9% 1000ML 1,000 ML IV STA ×2 (18:54→19:38)
[2022-01-01 19:14] LABS: BASOPHILS # (AUTO) 0.1 (0.0-0.1); BASOPHILS % 0.5 % (0.0-1.0); EOSINOPHILS # (AUTO) 0.2 (0.0-0.4); EOSINOPHILS % 1.3 % (0.0-6.0); LYMPHOCYTES # (AUTO) 3.8 (1.0-3.2); LYMPHOCYTES % 29.6 % (18.0-39.1); MEAN CORPUSCULAR HEMOGLOBIN 28.2 pg (28-32); MEAN CORPUSCULAR VOLUME 93.8 fL (81-99); MONOCYTES # (AUTO) 0.6 (0.2-0.8); MONOCYTES % 4.2 % (4.4-11.3); NEUTROPHILS # (AUTO) 8.3 (2.1-6.9); NEUTROPHILS % 63.7 % (38.7-80.0); PLATELET COUNT 369 x10e3/uL (140-360); RED BLOOD COUNT 2.27 x10e6/uL (3.6-5.1); RED CELL DISTRIBUTION WIDTH 13.8 % (11.7-14.4)
[2022-01-01] MEDS ORDERED: SODIUM CHLORIDE 0.9% 250ML 250 ML IV ONE (19:15)
[2022-01-01 19:16] LABS: HEMATOCRIT 21.3 % (34.2-44.1); HEMOGLOBIN 6.4 g/dL (12.0-16.0)
[2022-01-01 19:28] LABS: INR 0.97; PROTHROMBIN TIME 13.8 seconds (11.9-14.5)
[2022-01-01 19:31] LABS: ALBUMIN 3.1 g/dL (3.5-5.0); ALBUMIN/GLOBULIN RATIO 0.9 (0.8-2.0); ANION GAP 17.4 mmol/L (8-16); CALCIUM 7.9 mg/dL (8.4-10.2); CREATININE, SERUM 1.13 mg/dL (0.57-1.11); POTASSIUM 4.4 mmol/L (3.5-5.1)
[2022-01-01 19:32] LABS: CREATINE KINASE 49 IU/L (29-168)
[2022-01-01] MEDS ORDERED: Morphine 4mg Syringe 4 MG/ML INJ IV STA (20:20)
[2022-01-01] MEDS ORDERED: DEXTROSE 50% SYRINGE 50 ML IV PRN ×2 (20:30→23:30)
[2022-01-01] MEDS ORDERED: ZOLPIDEM TARTRATE 5 MG TAB PO PRN (20:30)
[2022-01-01] MEDS ORDERED: VASOPRESSIN INJ 20 UNIT/ML VIAL ONE (20:55)
[2022-01-01] MEDS ORDERED: DEXTROSE 5% 100ML 0 ML IV ONE (20:55)
[2022-01-01] MEDS: INSULIN REGULAR, HUMAN 100 UNIT/1 ML SQ SCH (21:00)
[2022-01-01] MEDS: ATORVASTATIN 40 MG TAB PO SCH (21:00)
[2022-01-01 22:12] LABS: % IRON SATURATION 14 % (15-50); IRON 40 ug/dL (50-170); TOTAL IRON BINDING CAPACITY 287 ug/dL (261-478); TRANSFERRIN 205 mg/dL (180-382)
[2022-01-01] MEDS ORDERED: POTASSIUM CHLORIDE 20 MEQ TAB CR PO PRN (23:30)
[2022-01-01] MEDS ORDERED: ALBUTEROL/IPRATROPIUM 3 ML NEB NEB PRN (23:30)
[2022-01-01] MEDS ORDERED: BENZONATATE 100 MG CAP PO PRN (23:30)
[2022-01-01] MEDS ORDERED: DIPHENHYDRAMINE HCL 25 MG CAP PO PRN (23:30)
[2022-01-01] MEDS ORDERED: ACETAMINOPHEN 325 MG TAB PO PRN (23:30)
[2022-01-01] MEDS ORDERED: DOCUSATE SODIUM 100 MG CAP PO PRN (23:30)
[2022-01-01] MEDS ORDERED: SIMETHICONE 80 MG CHEW PO PRN (23:30)
[2022-01-01] MEDS ORDERED: MELATONIN 5 MG TABLET PO PRN (23:30)
[2022-01-01] MEDS ORDERED: HYDRALAZINE HCL 20 MG/ML VIAL IV PRN (23:30)
[2022-01-01] MEDS ORDERED: LIDOCAINE 4% PATCH TP PRN (23:30)
[2022-01-01] MEDS ORDERED: TRAMADOL HCL 50 MG TAB PO PRN (23:45)
[2022-01-02] VITALS (81 sets, daily range): BP systolic 97–145; BP diastolic 34–102
[2022-01-02] MEDS ORDERED: LORAZEPAM INJ 2 MG/ML VIAL IV ONE (00:45)
[2022-01-02] MEDS ORDERED: Morphine 4mg Syringe 4 MG/ML INJ IV PRN (02:45)
[2022-01-02 05:28] LABS: BASOPHILS % 0.3 % (0.0-1.0); EOSINOPHILS # (AUTO) 0.1 (0.0-0.4); EOSINOPHILS % 0.5 % (0.0-6.0); HEMATOCRIT 23.1 % (34.2-44.1); HEMOGLOBIN 7.3 g/dL (12.0-16.0); LYMPHOCYTES % 25.1 % (18.0-39.1); MEAN CORPUSCULAR HEMOGLOBIN 29.7 pg (28-32); MEAN CORPUSCULAR HGB CONC 31.6 g/dL (31-35); MEAN CORPUSCULAR VOLUME 93.9 fL (81-99); MONOCYTES # (AUTO) 0.8 (0.2-0.8); MONOCYTES % 6.3 % (4.4-11.3); NEUTROPHILS # (AUTO) 8.1 (2.1-6.9); NEUTROPHILS % 67.5 % (38.7-80.0); PLATELET COUNT 234 x10e3/uL (140-360); RED BLOOD COUNT 2.46 x10e6/uL (3.6-5.1); RED CELL DISTRIBUTION WIDTH 13.7 % (11.7-14.4)
[2022-01-02 06:13] LABS: MAGNESIUM 1.7 MG/DL (1.3-2.1); PHOSPHORUS 3.7 MG/DL (2.3-4.7)
[2022-01-02 06:19] LABS: ALBUMIN 2.7 g/dL (3.5-5.0); ANION GAP 10.2 mmol/L (8-16); CALCIUM 7.5 mg/dL (8.4-10.2); CREATININE, SERUM 0.89 mg/dL (0.57-1.11); POTASSIUM 4.2 mmol/L (3.5-5.1)
[2022-01-02] MEDS: INSULIN REGULAR, HUMAN 100 UNIT/1 ML SQ SCH ×4 (07:30→20:58)
[2022-01-02 07:58] LABS: CREATINE KINASE MB 5.1 ng/mL (0-5.0)
[2022-01-02] MEDS ORDERED: SODIUM CHLORIDE 0.9% 250ML 250 ML IV ONE ×3 (08:30→18:15)
[2022-01-02 08:40] LABS: CHOL/HDL RATIO 4.2 (3.0-3.6)
[2022-01-02] MEDS ORDERED: ASPIRIN 81 MG ENTERIC COATED PO SCH (09:00)
[2022-01-02] MEDS: METOPROLOL TARTRATE 25 MG TAB PO SCH ×2 (09:30→13:30)
[2022-01-02] MEDS: IRON SUCROSE 100 MG in SODIUM CHLORIDE 0.9% 100 ML 100 ML IV SCH (10:10)
[2022-01-02 11:33] LABS: HEMATOCRIT 21.3 % (34.2-44.1); HEMOGLOBIN 6.8 g/dL (12.0-16.0)
[2022-01-02] MEDS ORDERED: SODIUM CHLORIDE 0.9% 250ML 250 ML ONE ×2 (11:42→11:48)
[2022-01-02 11:53] LABS: CREATINE KINASE MB 5.4 ng/mL (0-5.0)
[2022-01-02] MEDS: DEXTROSE 5%/0.9% SOD CHL 1,000 ML IV SCH ×2 (15:10→19:00)
[2022-01-02 17:10] LABS: HEMOGLOBIN 7.1 g/dL (12.0-16.0)
[2022-01-02 17:13] LABS: HEMATOCRIT 22.3 % (34.2-44.1)
[2022-01-02] MEDS ORDERED: SODIUM CHLORIDE 0.9% 100 ML ONE (19:35)
[2022-01-02] MEDS ORDERED: IOPAMIDOL 370 MG/ML 100 ML INFUS..BTL INJ ONE (19:35)
[2022-01-02] MEDS: ATORVASTATIN 40 MG TAB PO SCH (20:19)
[2022-01-03] VITALS (56 sets, daily range): BP systolic 103–151; BP diastolic 33–117
[2022-01-03] MEDS ORDERED: BISACODYL 5 MG TAB EC PO ONE ×2 (00:15→00:31)
[2022-01-03 03:02] LABS: HEMATOCRIT 26.1 % (34.2-44.1); HEMOGLOBIN 8.5 g/dL (12.0-16.0)
[2022-01-03] MEDS: DEXTROSE 5%/0.9% SOD CHL 1,000 ML IV SCH (04:37)
[2022-01-03] MEDS: INSULIN REGULAR, HUMAN 100 UNIT/1 ML SQ SCH ×4 (07:30→21:00)
[2022-01-03 07:46] LABS: BASOPHILS % 0.4 % (0.0-1.0); EOSINOPHILS # (AUTO) 0.1 (0.0-0.4); EOSINOPHILS % 1.1 % (0.0-6.0); HEMATOCRIT 24.4 % (34.2-44.1); HEMOGLOBIN 7.9 g/dL (12.0-16.0); LYMPHOCYTES # (AUTO) 2.1 (1.0-3.2); LYMPHOCYTES % 19.6 % (18.0-39.1); MEAN CORPUSCULAR HEMOGLOBIN 29.8 pg (28-32); MEAN CORPUSCULAR HGB CONC 32.4 g/dL (31-35); MEAN CORPUSCULAR VOLUME 92.1 fL (81-99); MONOCYTES # (AUTO) 0.6 (0.2-0.8); MONOCYTES % 5.7 % (4.4-11.3); NEUTROPHILS # (AUTO) 7.8 (2.1-6.9); NEUTROPHILS % 72.3 % (38.7-80.0); PLATELET COUNT 183 x10e3/uL (140-360); RED BLOOD COUNT 2.65 x10e6/uL (3.6-5.1); RED CELL DISTRIBUTION WIDTH 14.7 % (11.7-14.4)
[2022-01-03] MEDS ORDERED: SODIUM CHLORIDE 0.9% 1000ML 1,000 ML ONE (07:46)
[2022-01-03] MEDS ORDERED: LIDOCAINE HCL 2% LOCAL 20 ML VIAL ONE (07:47)
[2022-01-03] MEDS ORDERED: IOPAMIDOL 370 MG/ML 100 ML INFUS..BTL INJ ONE (07:49)
[2022-01-03] MEDS ORDERED: HEPARIN SOD/SOD CHLORIDE 0 ML ONE (07:50)
[2022-01-03 08:08] LABS: ALBUMIN 2.2 g/dL (3.5-5.0); ANION GAP 10.1 mmol/L (8-16); CALCIUM 7.2 mg/dL (8.4-10.2); POTASSIUM 4.1 mmol/L (3.5-5.1)
[2022-01-03] MEDS: METOPROLOL TARTRATE 25 MG TAB PO SCH ×2 (09:00→20:36)
[2022-01-03] MEDS: IRON SUCROSE 100 MG in SODIUM CHLORIDE 0.9% 100 ML 100 ML IV SCH (09:00)
[2022-01-03] MEDS ORDERED: HEPARIN SOD/SOD CHLORIDE 1,000 ML ONE (09:24)
[2022-01-03] MEDS ORDERED: FENTANYL CITRATE/PF 100MCG/2 ML INJ ONE (09:39)
[2022-01-03] MEDS ORDERED: MIDAZOLAM HCL 2 MG/2 ML VIAL ONE (09:39)
[2022-01-03 14:17] LABS: HEMATOCRIT 27.6 % (34.2-44.1); HEMOGLOBIN 8.7 g/dL (12.0-16.0)
[2022-01-03] MEDS ORDERED: FUROSEMIDE INJ 10 MG/ML 4 ML VIAL IV ONE (14:45)
[2022-01-03 18:30] LABS: HEMATOCRIT 27.1 % (34.2-44.1); HEMOGLOBIN 8.7 g/dL (12.0-16.0)
[2022-01-03] MEDS ORDERED: FUROSEMIDE INJ 10 MG/ML 2 ML VIAL IV ONE (19:45)
[2022-01-03] MEDS: ATORVASTATIN 40 MG TAB PO SCH (20:36)
[2022-01-04] VITALS (42 sets, daily range): BP systolic 104–178; BP diastolic 35–125
[2022-01-04 00:18] LABS: HEMATOCRIT 24.1 % (34.2-44.1); HEMOGLOBIN 7.8 g/dL (12.0-16.0)
[2022-01-04 06:03] LABS: BASOPHILS % 0.3 % (0.0-1.0); EOSINOPHILS % 0.3 % (0.0-6.0); HEMATOCRIT 23.2 % (34.2-44.1); HEMOGLOBIN 7.5 g/dL (12.0-16.0); LYMPHOCYTES # (AUTO) 1.1 (1.0-3.2); LYMPHOCYTES % 8.1 % (18.0-39.1); MEAN CORPUSCULAR HEMOGLOBIN 29.9 pg (28-32); MEAN CORPUSCULAR HGB CONC 32.3 g/dL (31-35); MEAN CORPUSCULAR VOLUME 92.4 fL (81-99); MONOCYTES # (AUTO) 0.5 (0.2-0.8); MONOCYTES % 3.9 % (4.4-11.3); NEUTROPHILS # (AUTO) 11.9 (2.1-6.9); NEUTROPHILS % 86.7 % (38.7-80.0); PLATELET COUNT 246 x10e3/uL (140-360); RED BLOOD COUNT 2.51 x10e6/uL (3.6-5.1); RED CELL DISTRIBUTION WIDTH 15.6 % (11.7-14.4)
[2022-01-04 06:22] LABS: ANION GAP 10.8 mmol/L (8-16); CALCIUM 7.3 mg/dL (8.4-10.2); CREATININE, SERUM 1.36 mg/dL (0.57-1.11); POTASSIUM 3.8 mmol/L (3.5-5.1)
[2022-01-04] MEDS: INSULIN REGULAR, HUMAN 100 UNIT/1 ML SQ SCH ×4 (07:30→21:00)
[2022-01-04] MEDS: IRON SUCROSE 100 MG in SODIUM CHLORIDE 0.9% 100 ML 100 ML IV SCH (09:35)
[2022-01-04] MEDS: METOPROLOL TARTRATE 25 MG TAB PO SCH ×2 (09:35→20:34)
[2022-01-04] MEDS ORDERED: SODIUM CHLORIDE 0.9% 250ML 250 ML ONE (10:35)
[2022-01-04 15:10] LABS: HEMATOCRIT 21.8 % (34.2-44.1)
[2022-01-04] MEDS ORDERED: SODIUM CHLORIDE 0.9% 250ML 250 ML IV ONE (15:15)
[2022-01-04 19:34] LABS: HEMATOCRIT 24.5 % (34.2-44.1); HEMOGLOBIN 7.8 g/dL (12.0-16.0)
[2022-01-04] MEDS: ATORVASTATIN 40 MG TAB PO SCH (20:34)
[2022-01-05] VITALS (9 sets, daily range): BP systolic 106–158; BP diastolic 45–68
[2022-01-05 00:59] LABS: HEMATOCRIT 24.4 % (34.2-44.1); HEMOGLOBIN 7.9 g/dL (12.0-16.0)
[2022-01-05 06:16] LABS: HEMATOCRIT 23.4 % (34.2-44.1); HEMOGLOBIN 7.6 g/dL (12.0-16.0)
[2022-01-05] MEDS: INSULIN REGULAR, HUMAN 100 UNIT/1 ML SQ SCH ×4 (07:30→21:00)
[2022-01-05] MEDS: IRON SUCROSE 100 MG in SODIUM CHLORIDE 0.9% 100 ML 100 ML IV SCH (09:43)
[2022-01-05] MEDS: METOPROLOL TARTRATE 25 MG TAB PO SCH ×2 (09:44→21:21)
[2022-01-05 12:25] LABS: HEMATOCRIT 26.9 % (34.2-44.1); HEMOGLOBIN 8.5 g/dL (12.0-16.0)
[2022-01-05 19:39] LABS: HEMATOCRIT 24.8 % (34.2-44.1); HEMOGLOBIN 7.9 g/dL (12.0-16.0)
[2022-01-05] MEDS: ATORVASTATIN 40 MG TAB PO SCH (21:19)
[2022-01-06 05:16] VITALS: BP 146/44
[2022-01-06 05:42] LABS: BASOPHILS # (AUTO) 0.1 (0.0-0.1); BASOPHILS % 0.5 % (0.0-1.0); EOSINOPHILS # (AUTO) 0.2 (0.0-0.4); HEMATOCRIT 23.8 % (34.2-44.1); HEMOGLOBIN 7.8 g/dL (12.0-16.0); LYMPHOCYTES # (AUTO) 1.9 (1.0-3.2); LYMPHOCYTES % 17.6 % (18.0-39.1); MEAN CORPUSCULAR HEMOGLOBIN 30.2 pg (28-32); MEAN CORPUSCULAR HGB CONC 32.8 g/dL (31-35); MEAN CORPUSCULAR VOLUME 92.2 fL (81-99); MONOCYTES # (AUTO) 0.7 (0.2-0.8); MONOCYTES % 6.9 % (4.4-11.3); NEUTROPHILS # (AUTO) 7.8 (2.1-6.9); NEUTROPHILS % 72.3 % (38.7-80.0); PLATELET COUNT 258 x10e3/uL (140-360); RED BLOOD COUNT 2.58 x10e6/uL (3.6-5.1); RED CELL DISTRIBUTION WIDTH 15.2 % (11.7-14.4)
[2022-01-06 06:04] LABS: ANION GAP 11.6 mmol/L (8-16); CALCIUM 7.9 mg/dL (8.4-10.2); CREATININE, SERUM 0.88 mg/dL (0.57-1.11); POTASSIUM 3.6 mmol/L (3.5-5.1)
[2022-01-06] MEDS: INSULIN REGULAR, HUMAN 100 UNIT/1 ML SQ SCH ×4 (07:30→21:00)
[2022-01-06 08:05] VITALS: BP 137/58
[2022-01-06] MEDS: METOPROLOL TARTRATE 25 MG TAB PO SCH ×2 (08:45→22:15)
[2022-01-06] MEDS: IRON SUCROSE 100 MG in SODIUM CHLORIDE 0.9% 100 ML 100 ML IV SCH (08:45)
[2022-01-06 13:56] LABS: HEMATOCRIT 26.3 % (34.2-44.1); HEMOGLOBIN 8.5 g/dL (12.0-16.0)
[2022-01-06] MEDS ORDERED: ONDANSETRON HCL 4 MG ORAL DISINTEGRATING TAB PO PRN (16:00)
[2022-01-06] MEDS: MUPIROCIN 2% OINT 22 GM TUBE TOP SCH (16:57)
[2022-01-06 20:00] VITALS: BP 139/50
[2022-01-06] MEDS: ATORVASTATIN 40 MG TAB PO SCH (22:00)
[2022-01-07] VITALS: BP 158/57
[2022-01-07 04:12] VITALS: BP 158/57
[2022-01-07] MEDS: INSULIN REGULAR, HUMAN 100 UNIT/1 ML SQ SCH ×2 (07:30→11:30)
[2022-01-07 08:36] VITALS: BP 158/57
[2022-01-07] MEDS ORDERED: METOPROLOL TARTRATE 25 MG TAB PO SCH (09:00)
[2022-01-07] MEDS ORDERED: LISINOPRIL 2.5 MG TAB PO SCH (09:00)
[2022-01-07] MEDS: MUPIROCIN 2% OINT 22 GM TUBE TOP SCH (09:05)
[2022-01-07 09:31] VITALS: BP 169/70
[2022-01-07] MEDS: IRON SUCROSE 100 MG in SODIUM CHLORIDE 0.9% 100 ML 100 ML IV SCH (10:19)
[2022-01-07 10:48] VITALS: BP 169/70
[2022-01-07 11:59] VITALS: BP 105/54
[2022-01-07] MEDS ORDERED: PANTOPRAZOLE SOD 40 MG TABEC PO SCH (16:30)
== END 2022-01-07 14:30 | disposition home or self-care (01) | DRG 356 ==
LOC: ER 18:36 → ERHOLD 18:53 → ICU 21:05 → MED/SURG 01-04 22:41
PROVIDERS: ADMIT Internal Medicine; ATTEND Internal Medicine
PROC: 02HV33Z Insertion of Infusion Device into Superior Vena Cava, Percutaneous Approach (ICD-10-PCS; 2022-01-01)
PROC: 30243N1 Transfusion of Nonautologous Red Blood Cells into Central Vein, Percutaneous Approach (ICD-10-PCS; 2022-01-01)
PROC: 04LB4ZZ Occlusion of Inferior Mesenteric Artery, Percutaneous Endoscopic Approach (ICD-10-PCS; principal; 2022-01-03)
PROC: 30243R1 Transfusion of Nonautologous Platelets into Central Vein, Percutaneous Approach (ICD-10-PCS; 2022-01-03)
DX: K57.31 Diverticulosis of large intestine without perforation or abscess with bleeding (principal); R57.8 Other shock; I21.A1 Myocardial infarction type 2; D62 Acute posthemorrhagic anemia; E11.9 Type 2 diabetes mellitus without complications; I25.119 Atherosclerotic heart disease of native coronary artery with unspecified angina pectoris; I25.2 Old myocardial infarction; I35.8 Other nonrheumatic aortic valve disorders; G89.29 Other chronic pain; Z79.1 Long term (current) use of non-steroidal anti-inflammatories (NSAID); Z20.822 Contact with and (suspected) exposure to COVID-19
CPT/HCPCS: 36415; 71045; 74174; 74470; 75726; 80048; 80053; 80061; 82550; 82553; 82607; 82746; 82948; 83540; 83690; 83735; 84100; 84466; 84484; 85014; 85018; 85025; 85045; 85610; 85730; 86850; 86900; 86920; 93005; 93306; 94799; 99251; 99284; C1769; C1887; J1756; J1940; J2001; J2250; J2270; J2405; J2543; J3010; J7030; J7042; J7050; P9016; P9034; Q9967; U0002

== ENCOUNTER 2022-10-26 18:07 | Inpatient (IN) | payer MEDICARE, OTHER ==
[~2022-10-26] VITALS: Ht 167.6 cm; Wt 77.6 kg
[~2022-10-26 18:07] MED LIST changes: +DEXAMETHASONE SOD PHOS INJ 4 MG/ML SDV ONE; +EPHEDRINE SULFATE INJ 50 MG/ML VIAL ONE; +ETOMIDATE 2 MG/ML 10 ML INJ IV ONE; +FENTANYL CITRATE/PF 100MCG/2 ML INJ ONE; +LIDOCAINE HCL 2% LOCAL INJ 5 ML SDV VIAL INJ ONE; +ONDANSETRON HCL INJ 2MG/ML 2ML 2 MG/ML VIAL ONE; +POVIDONE IODINE 0.05% 0.05 % ML PO ONE; +PROPOFOL IV EMULSION 10 MG/ML 20 ML VIAL ONE; +SEVOFLURANE INHAL SOLN 250 ML PEN BTL ONE
[2022-10-26] MEDS ORDERED: ONDANSETRON HCL INJ 2MG/ML 2ML 2 MG/ML VIAL IV STA (18:55)
[2022-10-26] MEDS ORDERED: Morphine 4mg INJECTION 4 MG/ML INJ IV ONE (19:00)
[2022-10-26 19:56] LABS: BASOPHILS # (AUTO) 0.1 (0.0-0.1); BASOPHILS % 0.4 % (0.0-1.0); EOSINOPHILS # (AUTO) 0.1 (0.0-0.4); EOSINOPHILS % 0.5 % (0.0-6.0); HEMATOCRIT 40.4 % (34.2-44.1); HEMOGLOBIN 12.8 g/dL (12.0-16.0); LYMPHOCYTES # (AUTO) 2.6 (1.0-3.2); LYMPHOCYTES % 17.6 % (18.0-39.1); MEAN CORPUSCULAR HEMOGLOBIN 29.1 pg (28-32); MEAN CORPUSCULAR HGB CONC 31.7 g/dL (31-35); MEAN CORPUSCULAR VOLUME 91.8 fL (81-99); MONOCYTES # (AUTO) 0.7 (0.2-0.8); MONOCYTES % 4.5 % (4.4-11.3); NEUTROPHILS # (AUTO) 11.1 (2.1-6.9); NEUTROPHILS % 76.5 % (38.7-80.0); PLATELET COUNT 388 x10e3/uL (140-360); RED CELL DISTRIBUTION WIDTH 13.2 % (11.7-14.4)
[2022-10-26 20:13] LABS: ALBUMIN/GLOBULIN RATIO 0.9 (0.8-2.0); ANION GAP 16.6 mmol/L (8-16); CREATININE, SERUM 1.06 mg/dL (0.57-1.11); POTASSIUM 4.6 mmol/L (3.5-5.1)
[2022-10-26 20:20] LABS: CREATINE KINASE MB 0.9 ng/mL (0-5.0)
[2022-10-26] MEDS ORDERED: IOPAMIDOL 370 MG/ML 100 ML INFUS..BTL INJ ONE (21:05)
[2022-10-26 21:21] LABS: CLARITY,URINE CLEAR (CLEAR); COLOR,URINE YELLOW (YELLOW)
[2022-10-26 21:22] LABS: KETONES,URINE NEGATIVE (NEGATIVE); LEUKOCYTE ESTERASE ,URINE NEGATIVE (NEGATIVE); NITRITE,URINE NEGATIVE (NEGATIVE); PROTEIN,URINE DIPSTICK >=300 (NEGATIVE); URINE UROBILINOGEN 0.2 mg/dL (0.2 - 1)
[2022-10-26 21:28] LABS: BACTERIA,URINE FEW /HPF; EPITHELIAL CELLS,URINE FEW /LPF; RBC,URINE 0-5 /HPF (0-5); TRANSITIONAL EPI CELLS,URINE FEW
[2022-10-26] MEDS ORDERED: SODIUM CHLORIDE 0.9% 1000ML 1,000 ML IV SCH (22:15)
[2022-10-26] MEDS ORDERED: ONDANSETRON HCL INJ 2MG/ML 2ML 2 MG/ML VIAL IV PRN (22:15)
[2022-10-26] MEDS ORDERED: Morphine 4mg INJECTION 4 MG/ML INJ IV PRN (22:15)
[2022-10-26] MEDS ORDERED: BENZOCAINE/TETRACAINE/BUTAMBEN AERO SPRAY 56 GM CAN TOP ONE (22:30)
[2022-10-26 23:33] VITALS: BP 124/45
[2022-10-26 23:37] VITALS: BP 124/45
[2022-10-26] MEDS ORDERED: METFORMIN HCL500 MG PO (23:46)
[2022-10-26] MEDS ORDERED: LISINOPRIL10 MG PO (23:46)
[2022-10-26] MEDS ORDERED: METOPROLOL TART25 MG PO (23:46)
[2022-10-27] VITALS (7 sets, daily range): BP systolic 109–141; BP diastolic 45–60
[2022-10-27 05:54] LABS: BASOPHILS # (AUTO) 0.1 (0.0-0.1); BASOPHILS % 0.5 % (0.0-1.0); EOSINOPHILS % 0.2 % (0.0-6.0); HEMATOCRIT 32.2 % (34.2-44.1); LYMPHOCYTES # (AUTO) 1.9 (1.0-3.2); LYMPHOCYTES % 16.2 % (18.0-39.1); MEAN CORPUSCULAR HEMOGLOBIN 29.1 pg (28-32); MEAN CORPUSCULAR HGB CONC 31.1 g/dL (31-35); MEAN CORPUSCULAR VOLUME 93.6 fL (81-99); MONOCYTES # (AUTO) 0.7 (0.2-0.8); MONOCYTES % 5.5 % (4.4-11.3); NEUTROPHILS # (AUTO) 9.1 (2.1-6.9); NEUTROPHILS % 76.8 % (38.7-80.0); PLATELET COUNT 324 x10e3/uL (140-360); RED BLOOD COUNT 3.44 x10e6/uL (3.6-5.1); RED CELL DISTRIBUTION WIDTH 13.6 % (11.7-14.4)
[2022-10-27 06:23] LABS: ALBUMIN 3.1 g/dL (3.5-5.0); ALBUMIN/GLOBULIN RATIO 0.9 (0.8-2.0); ANION GAP 11.5 mmol/L (8-16); CALCIUM 8.8 mg/dL (8.4-10.2); CREATININE, SERUM 1.5 mg/dL (0.57-1.11)
[2022-10-27 06:29] LABS: POTASSIUM 5.5 mmol/L (3.5-5.1)
[2022-10-27] MEDS ORDERED: CALCIUM GLUC 1 G/50 ML NACL 50 ML IV STA (08:11)
[2022-10-27] MEDS ORDERED: INSULIN REGULAR, HUMAN 100 UNIT/1 ML SQ ONE (08:15)
[2022-10-27] MEDS ORDERED: FUROSEMIDE INJ 10 MG/ML 4 ML VIAL IV ONE (08:15)
[2022-10-27] MEDS ORDERED: DEXTROSE 50% SYRINGE 50 ML IV ONE (08:15)
[2022-10-27] MEDS: DEXTROSE 5%/0.9% SOD CHL 1,000 ML IV SCH ×3 (09:49→20:57)
[2022-10-27] MEDS ORDERED: CALCIUM GLUC 1 G/50 ML NACL 50 ML IV ONE (10:00)
[2022-10-27] MEDS ORDERED: BENZONATATE 100 MG CAP PO PRN (10:15)
[2022-10-27] MEDS ORDERED: DEXTROSE 50% SYRINGE 50 ML IV PRN (10:15)
[2022-10-27] MEDS ORDERED: SIMETHICONE 80 MG CHEW PO PRN (10:15)
[2022-10-27] MEDS ORDERED: LIDOCAINE 4% PATCH TP PRN (10:15)
[2022-10-27] MEDS ORDERED: MELATONIN 5 MG TABLET PO PRN (10:15)
[2022-10-27] MEDS ORDERED: HYDRALAZINE HCL 20 MG/ML VIAL IV PRN (10:15)
[2022-10-27] MEDS ORDERED: POTASSIUM CHLORIDE 20 MEQ TAB CR PO PRN (10:15)
[2022-10-27] MEDS ORDERED: DOCUSATE SODIUM 100 MG CAP PO PRN (10:15)
[2022-10-27] MEDS ORDERED: DIPHENHYDRAMINE HCL 25 MG CAP PO PRN (10:15)
[2022-10-27] MEDS ORDERED: ALBUTEROL/IPRATROPIUM 3 ML NEB NEB PRN (10:15)
[2022-10-28] VITALS (7 sets, daily range): BP systolic 146–162; BP diastolic 52–72
[2022-10-28 05:02] LABS: BASOPHILS % 0.4 % (0.0-1.0); EOSINOPHILS # (AUTO) 0.1 (0.0-0.4); EOSINOPHILS % 1.9 % (0.0-6.0); HEMATOCRIT 32.4 % (34.2-44.1); HEMOGLOBIN 9.2 g/dL (12.0-16.0); LYMPHOCYTES # (AUTO) 2.3 (1.0-3.2); LYMPHOCYTES % 32.7 % (18.0-39.1); MEAN CORPUSCULAR HEMOGLOBIN 28.7 pg (28-32); MEAN CORPUSCULAR HGB CONC 28.4 g/dL (31-35); MONOCYTES # (AUTO) 0.5 (0.2-0.8); MONOCYTES % 7.6 % (4.4-11.3); NEUTROPHILS # (AUTO) 3.9 (2.1-6.9); NEUTROPHILS % 57.1 % (38.7-80.0); PLATELET COUNT 247 x10e3/uL (140-360); RED BLOOD COUNT 3.21 x10e6/uL (3.6-5.1); RED CELL DISTRIBUTION WIDTH 13.6 % (11.7-14.4)
[2022-10-28 05:04] LABS: MEAN CORPUSCULAR VOLUME 100.9 fL (81-99)
[2022-10-28 05:20] LABS: CALCIUM 8.5 mg/dL (8.4-10.2); CREATININE, SERUM 1.32 mg/dL (0.57-1.11)
[2022-10-28] MEDS: PANTOPRAZOLE SOD 40 MG TABEC PO SCH (07:30)
[2022-10-28] MEDS: DEXTROSE 5%/0.9% SOD CHL 1,000 ML IV SCH ×3 (08:40→22:03)
[2022-10-28] MEDS ORDERED: BUPIVACAINE HCL 0.5% INJ 30 ML VIAL INJ ONE (10:51)
[2022-10-28] MEDS ORDERED: BACITRACIN ZINC 15 GM OINT ONE (10:51)
[2022-10-28] MEDS ORDERED: SUGAMMADEX SODIUM 200 MG/2 ML VIAL IV ONE (11:46)
[2022-10-28] MEDS ORDERED: PHENYLEPHRINE HCL 1% 10 MG/ML VIAL ONE (11:47)
[2022-10-28] MEDS ORDERED: ACETAMINOPHEN 1000 MG/100 ML 100 ML IV ONE (11:47)
[2022-10-28] MEDS ORDERED: CEFAZOLIN SODIUM 2 GM ONE (11:54)
[2022-10-28] MEDS ORDERED: FENTANYL CITRATE/PF 100MCG/2 ML INJ ONE (13:36)
[2022-10-29] VITALS (7 sets, daily range): BP systolic 151–172; BP diastolic 58–71
[2022-10-29 05:19] LABS: BASOPHILS % 0.2 % (0.0-1.0); HEMATOCRIT 28.7 % (34.2-44.1); LYMPHOCYTES # (AUTO) 1.6 (1.0-3.2); LYMPHOCYTES % 15.8 % (18.0-39.1); MEAN CORPUSCULAR HEMOGLOBIN 29.2 pg (28-32); MEAN CORPUSCULAR HGB CONC 31.4 g/dL (31-35); MEAN CORPUSCULAR VOLUME 93.2 fL (81-99); MONOCYTES # (AUTO) 0.8 (0.2-0.8); NEUTROPHILS # (AUTO) 7.7 (2.1-6.9); NEUTROPHILS % 75.4 % (38.7-80.0); PLATELET COUNT 251 x10e3/uL (140-360); RED BLOOD COUNT 3.08 x10e6/uL (3.6-5.1); RED CELL DISTRIBUTION WIDTH 13.3 % (11.7-14.4)
[2022-10-29 05:51] LABS: ANION GAP 13.2 mmol/L (8-16); CALCIUM 8.5 mg/dL (8.4-10.2); CREATININE, SERUM 1.14 mg/dL (0.57-1.11); POTASSIUM 4.2 mmol/L (3.5-5.1)
[2022-10-29] MEDS: DEXTROSE 5%/0.9% SOD CHL 1,000 ML IV SCH (06:48)
[2022-10-29] MEDS: PANTOPRAZOLE SOD 40 MG TABEC PO SCH (07:53)
[2022-10-29] MEDS: ACETAMINOPHEN 325 MG TAB PO PRN ×2 (08:00→13:56)
[2022-10-29] MEDS: METOPROLOL SUCCINATE 25 MG TAB XL PO SCH ×2 (09:00→11:48)
== END 2022-10-29 18:26 | disposition home or self-care (01) | DRG 354 ==
LOC: ER 18:12 → ERHOLD 22:09 → MED/SURG 23:21
PROVIDERS: ADMIT Internal Medicine; ATTEND Internal Medicine
PROC: 0WQF0ZZ Repair Abdominal Wall, Open Approach (ICD-10-PCS; principal; 2022-10-28 11:18)
DX: K43.0 Incisional hernia with obstruction, without gangrene (principal); K56.609 Unspecified intestinal obstruction, unspecified as to partial versus complete obstruction; N39.0 Urinary tract infection, site not specified; E11.9 Type 2 diabetes mellitus without complications; E87.5 Hyperkalemia; I10 Essential (primary) hypertension; K76.0 Fatty (change of) liver, not elsewhere classified; K57.30 Diverticulosis of large intestine without perforation or abscess without bleeding; E66.01 Morbid (severe) obesity due to excess calories; E78.5 Hyperlipidemia, unspecified; Z20.822 Contact with and (suspected) exposure to COVID-19; Z90.49 Acquired absence of other specified parts of digestive tract
CPT/HCPCS: 36415; 74177; 80048; 80053; 81001; 82550; 82553; 82948; 83690; 84132; 84484; 85025; 93005; 93306; 94799; 96360; 99252; 99284; C1713; J1100; J1817; J1940; J2001; J2270; J2370; J2405; J2543; J3010; J7030; J7042; J7799; Q9967

== ENCOUNTER → 2023-01-29 | Outpatient (CLI) | payer OTHER ==
[~2023-01-29] MED LIST changes: -DEXAMETHASONE SOD PHOS INJ 4 MG/ML SDV ONE; -EPHEDRINE SULFATE INJ 50 MG/ML VIAL ONE; -ETOMIDATE 2 MG/ML 10 ML INJ IV ONE; -FENTANYL CITRATE/PF 100MCG/2 ML INJ ONE; -LIDOCAINE HCL 2% LOCAL INJ 5 ML SDV VIAL INJ ONE; +METFORMIN HCL500 MG PO; +METOPROLOL TART25 MG PO; -ONDANSETRON HCL INJ 2MG/ML 2ML 2 MG/ML VIAL ONE; -POVIDONE IODINE 0.05% 0.05 % ML PO ONE; -PROPOFOL IV EMULSION 10 MG/ML 20 ML VIAL ONE; -SEVOFLURANE INHAL SOLN 250 ML PEN BTL ONE
== END ==
LOC: MAMMO 09:42
PROVIDERS: ATTEND Internal Medicine
DX: Z12.31 Encounter for screening mammogram for malignant neoplasm of breast (principal)
CPT/HCPCS: 77067